=== PATIENT | female | born 1935 | race Caucasian/White ===

== ENCOUNTER 2017-04-04 12:24 | Inpatient (IN) ==
[2017-04-04] MEDS ORDERED: ASPIRIN 325 MG TABLET PO STA (12:47)
[2017-04-04] MEDS ORDERED: NITROGLYCERIN 2% OINT 1 INCH/GM PACK TOP STA (12:47)
[2017-04-04] MEDS ORDERED: METOCLOPRAMIDE 10 MG/2 ML VIAL IV STA (12:47)
[2017-04-04] MEDS ORDERED: PANTOPRAZOLE 40 MG VIAL IV STA (12:47)
[2017-04-04] MEDS ORDERED: ALUM/MAG/SIMETH/LIDO VISC 1:1 30 ML BOTTLE PO STA (12:47)
[2017-04-04 13:15] LABS: Basophils % 0.1 % (0.0-0.8); Hematocrit 37.1 VOL% (35.7-47.0); Hemoglobin 12.6 GM/DL (12.0-16.0); Immature Granulocytes Absolute 0.14 #; Lymphocytes # 1.1 10*3/uL (1.4-4.0); Lymphocytes % 8.3 % (21.3-54.2); Mean Corpuscular Hemoglobin 33 PG (27-34); Mean Corpuscular Volume 96.1 FL (87-102); Mean Platelet Volume 10.9 FL (9.6-12.0); Monocytes # 1.2 10*3/uL (0.11-0.8); Monocytes % 8.7 % (1.7-12.7); Neutrophils % 81.9 % (38.7-73.9); Platelet Count 249 T/CUMM (130-400); Red Blood Count 3.86 MC/CUMM (3.8-5.5); Red Cell Distribution Width 13.6 % (9.3-17.3); White Blood Count 13.5 T/CUMM (4-12)
[2017-04-04 13:27] LABS: INR 0.9; Partial Thromboplastin Time 24.8 SECS (0-40)
[2017-04-04] MEDS ORDERED: NITROGLYCERIN 2% OINT 1 INCH/GM PACK TOP ONE (13:28)
[2017-04-04] MEDS ORDERED: ASPIRIN 325 MG TABLET ONE (13:28)
[2017-04-04] MEDS ORDERED: METOCLOPRAMIDE 10 MG/2 ML VIAL ONE (13:28)
[2017-04-04] MEDS ORDERED: ALUM/MAG/SIMETH/LIDO VISC 1:1 30 ML BOTTLE PO ONE (13:28)
[2017-04-04] MEDS ORDERED: PANTOPRAZOLE 40 MG VIAL IV ONE (13:28)
[2017-04-04 13:44] LABS: Alanine Aminotransferase 60 U/L (13-56); Albumin 3.6 G/DL (3.4-5.0); Alkaline Phosphatase 79 U/L (45-117); Amylase 22 U/L (25-115); Aspartate Amino Transferase 48 U/L (0-37); Blood Urea Nitrogen 39 MG/DL (7-18); Calcium 9.2 MG/DL (8.5-10.1); Glucose 101 MG/DL (74-106); Osmolality,Calculated 287.4 MOS/KG (273-304); Potassium 4.1 MMOL/L (3.5-5.1); Sodium 140 MMOL/L (136-145); Total Protein 6.2 G/DL (6.4-8.3)
[2017-04-04 13:45] LABS: Troponin I Only 0.051 NG/ML (0.00-0.045)
[2017-04-04] MEDS ORDERED: MAGNESIUM SULF RIDER 4 GM in PREMIX 1 EACH IV PRN (16:18)
[2017-04-04] MEDS ORDERED: ACETAMINOPHEN 325 MG TABLET PO PRN (16:18)
[2017-04-04] MEDS ORDERED: MAGNESIUM SULF RIDER 2 GM in PREMIX 1 EACH IV PRN (16:18)
[2017-04-04] MEDS ORDERED: ONDANSETRON 4 MG/2 ML VIAL IV PRN (16:18)
[2017-04-04] MEDS ORDERED: hydroCHLOROthiazide 25 MG TABLET PO SCH (16:30)
[2017-04-04] MEDS ORDERED: ALBUTEROL/IPRATROPIUM 3 ML NEB RESP TX PRN (16:40)
[2017-04-04] MEDS: LISINOPRIL/HCTZ 10-12.5 MG TABLET PO SCH (17:46)
[2017-04-04] MEDS: PANTOPRAZOLE 40 MG TABLET PO SCH (17:47)
[2017-04-04] MEDS: ENOXAPARIN 40 MG/0.4 ML SYRINGE SUBCUT SCH (17:47)
[2017-04-04] MEDS: FERROUS SULFATE 325 MG TABLET PO SCH (17:47)
[2017-04-04 17:50] LABS: Troponin I Only 0.092 NG/ML (0.00-0.045)
[2017-04-04 17:53] LABS: Magnesium 2.5 MG/DL (1.8-2.4); Thyroid Stimulating Hormone 0.788 uIU/ml (0.358-3.74)
[2017-04-04] MEDS: GABAPENTIN 300 MG CAPSULE PO SCH (21:03)
[2017-04-04 21:04] LABS: Troponin I Only 0.074 NG/ML (0.00-0.045)
[2017-04-05 00:01] LABS: Troponin I Only 0.077 NG/ML (0.00-0.045)
[2017-04-05 01:07] LABS: Apearance,Urine CLEAR (Clear); Bilirubin,Urine Negative (Negative); Blood, Urine Negative (Negative); Glucose,Urine (UA) Negative (Negative); Ketones,Urine Negative (Negative); Nitrite,Urine Negative (Negative); Protein,Urine Negative; RBC,Urine <1 /HPF (0-4); Urine Color Straw (Yellow); Urine Specific Gravity 1.008 (1.001-1.035); Urine Urobilinogen < 2.0 EU/DL (0.2-1.0); WBC,Urine <1 /HPF (0-6)
[2017-04-05 05:36] LABS: Basophils # 0.1 10*3/uL (0.0-0.2); Basophils % 0.3 % (0.0-0.8); Eosinophils # 0.1 10*3/uL (0.0-0.87); Eosinophils % 0.7 % (0.00-10.9); Hematocrit 34.8 VOL% (35.7-47.0); Hemoglobin 11.5 GM/DL (12.0-16.0); Immature Granulocytes % 0.7 %; Lymphocytes # 3.1 10*3/uL (1.4-4.0); Lymphocytes % 20.3 % (21.3-54.2); Mean Corpuscular Hemoglobin 32 PG (27-34); Mean Corpuscular Volume 96.7 FL (87-102); Monocytes # 1.1 10*3/uL (0.11-0.8); Monocytes % 7.1 % (1.7-12.7); Neutrophils # 10.6 10*3/uL (1.4-7.4); Neutrophils % 70.9 % (38.7-73.9); Platelet Count 235 T/CUMM (130-400); Red Cell Distribution Width 13.8 % (9.3-17.3)
[2017-04-05] MEDS: LEVOTHYROXINE 200 MCG TABLET PO SCH (06:11)
[2017-04-05 06:21] LABS: Calcium 8.6 MG/DL (8.5-10.1); Potassium 3.9 MMOL/L (3.5-5.1); Risk Ratio 2.91; VLDL CHOLESTEROL 31.8 MG/DL
[2017-04-05] MEDS ORDERED: POTASSIUM CHLORIDE RIDER 10 MEQ in PREMIX 1 EACH IV PRN (11:20)
[2017-04-05] MEDS ORDERED: diphenhydrAMINE CAP 25 MG CAPSULE PO ONE (11:20)
[2017-04-05] MEDS ORDERED: MAGNESIUM SULF RIDER 2 GM in PREMIX 1 EACH IV PRN (11:20)
[2017-04-05] MEDS ORDERED: SODIUM CHLORIDE 0.9% 1,000 ML IV SCH (11:30)
[2017-04-05] MEDS: FUROSEMIDE 20 MG TABLET PO SCH ×2 (12:54→13:21)
[2017-04-05] MEDS: GABAPENTIN 300 MG CAPSULE PO SCH ×3 (13:17→20:25)
[2017-04-05] MEDS: FERROUS SULFATE 325 MG TABLET PO SCH (13:17)
[2017-04-05] MEDS: LOSARTAN 50 MG TABLET PO SCH (13:17)
[2017-04-05] MEDS: ASPIRIN EC 81 MG TABLET PO SCH (13:17)
[2017-04-05] MEDS: PANTOPRAZOLE 40 MG TABLET PO SCH (13:17)
[2017-04-05] MEDS: amLODIPine 5 MG TABLET PO SCH (13:18)
[2017-04-05] MEDS: SIMVASTATIN 40 MG TABLET PO SCH (13:18)
[2017-04-05] MEDS: hydroCHLOROthiazide 12.5 MG CAPSULE PO SCH (13:21)
[2017-04-05] MEDS: LISINOPRIL/HCTZ 10-12.5 MG TABLET PO SCH (13:21)
[2017-04-05] MEDS ORDERED: LIDOCAINE 1% 20 ML VIAL ONE (14:06)
[2017-04-05] MEDS ORDERED: MEPERIDINE 25 MG/1 ML VIAL ONE (14:18)
[2017-04-05] MEDS ORDERED: MIDAZOLAM 2 MG/2 ML VIAL ONE (14:19)
[2017-04-05] MEDS ORDERED: HEPARIN 5,000 UNIT/1 ML VIAL ONE (14:25)
[2017-04-05] MEDS: ENOXAPARIN 40 MG/0.4 ML SYRINGE SUBCUT SCH (17:13)
[2017-04-05] MEDS: MORPHINE 2 MG/1 ML SYRINGE IV PRN (23:42)
[2017-04-05] MEDS: ZALEPLON 5 MG CAPSULE PO PRN (23:44)
[2017-04-06] MEDS: MORPHINE 2 MG/1 ML SYRINGE IV PRN ×2 (03:49→06:49)
[2017-04-06 05:21] LABS: Basophils # 0.1 10*3/uL (0.0-0.2); Basophils % 0.5 % (0.0-0.8); Eosinophils # 0.3 10*3/uL (0.0-0.87); Eosinophils % 2.1 % (0.00-10.9); Hematocrit 36.7 VOL% (35.7-47.0); Hemoglobin 12.3 GM/DL (12.0-16.0); Immature Granulocytes % 0.5 %; Immature Granulocytes Absolute 0.07 #; Lymphocytes # 2.8 10*3/uL (1.4-4.0); Lymphocytes % 20.8 % (21.3-54.2); Mean Corpuscular HGB Conc 33.5 GM/DL (32-36); Mean Corpuscular Hemoglobin 33 PG (27-34); Mean Corpuscular Volume 97.9 FL (87-102); Monocytes # 1.3 10*3/uL (0.11-0.8); Monocytes % 9.9 % (1.7-12.7); Neutrophils # 8.8 10*3/uL (1.4-7.4); Neutrophils % 66.2 % (38.7-73.9); Platelet Count 238 T/CUMM (130-400); Red Blood Count 3.75 MC/CUMM (3.8-5.5); Red Cell Distribution Width 14.1 % (9.3-17.3); White Blood Count 13.3 T/CUMM (4-12)
[2017-04-06 05:47] LABS: Calcium 8.3 MG/DL (8.5-10.1); Potassium 3.8 MMOL/L (3.5-5.1)
[2017-04-06 05:53] LABS: Calcium 8.5 MG/DL (8.5-10.1); Magnesium 2.4 MG/DL (1.8-2.4); Osmolality,Calculated 289.8 MOS/KG (273-304); Potassium 3.9 MMOL/L (3.5-5.1)
[2017-04-06] MEDS: LEVOTHYROXINE 200 MCG TABLET PO SCH (06:42)
[2017-04-06] MEDS: LOSARTAN 50 MG TABLET PO SCH (09:00)
[2017-04-06] MEDS: PANTOPRAZOLE 40 MG TABLET PO SCH (09:01)
[2017-04-06] MEDS: FUROSEMIDE 20 MG TABLET PO SCH ×2 (09:01→11:59)
[2017-04-06] MEDS: GABAPENTIN 300 MG CAPSULE PO SCH ×4 (09:01→21:24)
[2017-04-06] MEDS: SIMVASTATIN 40 MG TABLET PO SCH (09:01)
[2017-04-06] MEDS: LISINOPRIL/HCTZ 10-12.5 MG TABLET PO SCH (09:01)
[2017-04-06] MEDS: amLODIPine 5 MG TABLET PO SCH (09:01)
[2017-04-06] MEDS: hydroCHLOROthiazide 12.5 MG CAPSULE PO SCH (09:01)
[2017-04-06] MEDS: ASPIRIN EC 81 MG TABLET PO SCH (09:01)
[2017-04-06] MEDS: FERROUS SULFATE 325 MG TABLET PO SCH (11:59)
[2017-04-06] MEDS: ENOXAPARIN 40 MG/0.4 ML SYRINGE SUBCUT SCH (16:08)
[2017-04-06] MEDS: ZALEPLON 5 MG CAPSULE PO PRN (21:22)
[2017-04-07 04:51] LABS: Basophils # 0.1 10*3/uL (0.0-0.2); Basophils % 0.6 % (0.0-0.8); Eosinophils # 0.4 10*3/uL (0.0-0.87); Eosinophils % 3.2 % (0.00-10.9); Hematocrit 37.9 VOL% (35.7-47.0); Hemoglobin 12.6 GM/DL (12.0-16.0); Immature Granulocytes % 0.6 %; Immature Granulocytes Absolute 0.07 #; Lymphocytes # 3.6 10*3/uL (1.4-4.0); Lymphocytes % 29.7 % (21.3-54.2); Mean Corpuscular HGB Conc 33.2 GM/DL (32-36); Mean Corpuscular Hemoglobin 32 PG (27-34); Mean Corpuscular Volume 96.9 FL (87-102); Mean Platelet Volume 10.9 FL (9.6-12.0); Monocytes # 1.1 10*3/uL (0.11-0.8); Neutrophils % 56.9 % (38.7-73.9); Platelet Count 251 T/CUMM (130-400); Red Blood Count 3.91 MC/CUMM (3.8-5.5); Red Cell Distribution Width 13.8 % (9.3-17.3); White Blood Count 12.2 T/CUMM (4-12)
[2017-04-07 05:18] LABS: Calcium 8.7 MG/DL (8.5-10.1); Magnesium 2.4 MG/DL (1.8-2.4); Osmolality,Calculated 287.1 MOS/KG (273-304); Potassium 3.9 MMOL/L (3.5-5.1)
[2017-04-07] MEDS: LEVOTHYROXINE 200 MCG TABLET PO SCH (06:54)
[2017-04-07] MEDS: ASPIRIN EC 81 MG TABLET PO SCH (08:42)
[2017-04-07] MEDS: SIMVASTATIN 40 MG TABLET PO SCH (08:42)
[2017-04-07] MEDS: LOSARTAN 50 MG TABLET PO SCH (08:43)
[2017-04-07] MEDS: hydroCHLOROthiazide 12.5 MG CAPSULE PO SCH (08:43)
[2017-04-07] MEDS: LISINOPRIL/HCTZ 10-12.5 MG TABLET PO SCH (08:43)
[2017-04-07] MEDS: FUROSEMIDE 20 MG TABLET PO SCH ×2 (08:43→12:03)
[2017-04-07] MEDS: amLODIPine 5 MG TABLET PO SCH (08:43)
[2017-04-07] MEDS: GABAPENTIN 300 MG CAPSULE PO SCH ×3 (08:43→22:20)
[2017-04-07] MEDS: PANTOPRAZOLE 40 MG TABLET PO SCH (08:43)
[2017-04-07] MEDS: tiZANidine 4 MG TABLET PO PRN ×2 (10:34→22:20)
[2017-04-07] MEDS: FERROUS SULFATE 325 MG TABLET PO SCH (12:04)
[2017-04-07] MEDS: ENOXAPARIN 40 MG/0.4 ML SYRINGE SUBCUT SCH (17:46)
[2017-04-07] MEDS: ZALEPLON 5 MG CAPSULE PO PRN (22:20)
[2017-04-08 05:11] LABS: Calcium 8.5 MG/DL (8.5-10.1); Magnesium 2.3 MG/DL (1.8-2.4); Osmolality,Calculated 284.5 MOS/KG (273-304); Potassium 4.1 MMOL/L (3.5-5.1)
[2017-04-08] MEDS: LEVOTHYROXINE 200 MCG TABLET PO SCH (06:22)
[2017-04-08] MEDS: tiZANidine 4 MG TABLET PO PRN (06:24)
[2017-04-08] MEDS: GABAPENTIN 300 MG CAPSULE PO SCH ×3 (10:14→21:04)
[2017-04-08] MEDS: LISINOPRIL/HCTZ 10-12.5 MG TABLET PO SCH (10:14)
[2017-04-08] MEDS: amLODIPine 5 MG TABLET PO SCH (10:14)
[2017-04-08] MEDS: LOSARTAN 50 MG TABLET PO SCH (10:15)
[2017-04-08] MEDS: SIMVASTATIN 40 MG TABLET PO SCH (10:15)
[2017-04-08] MEDS: ASPIRIN EC 81 MG TABLET PO SCH (10:15)
[2017-04-08] MEDS: FUROSEMIDE 20 MG TABLET PO SCH ×2 (10:15→14:48)
[2017-04-08] MEDS: PANTOPRAZOLE 40 MG TABLET PO SCH (10:16)
[2017-04-08] MEDS: hydroCHLOROthiazide 12.5 MG CAPSULE PO SCH (10:16)
[2017-04-08] MEDS: FERROUS SULFATE 325 MG TABLET PO SCH (14:46)
[2017-04-08] MEDS: ENOXAPARIN 40 MG/0.4 ML SYRINGE SUBCUT SCH (17:44)
[2017-04-09 05:18] LABS: Basophils # 0.1 10*3/uL (0.0-0.2); Basophils % 0.5 % (0.0-0.8); Eosinophils # 0.5 10*3/uL (0.0-0.87); Eosinophils % 3.8 % (0.00-10.9); Hematocrit 38.8 VOL% (35.7-47.0); Hemoglobin 12.6 GM/DL (12.0-16.0); Immature Granulocytes % 0.6 %; Immature Granulocytes Absolute 0.07 #; Lymphocytes # 2.9 10*3/uL (1.4-4.0); Lymphocytes % 23.4 % (21.3-54.2); Mean Corpuscular HGB Conc 32.5 GM/DL (32-36); Mean Corpuscular Hemoglobin 32 PG (27-34); Mean Corpuscular Volume 97.5 FL (87-102); Mean Platelet Volume 11.1 FL (9.6-12.0); Monocytes # 1.1 10*3/uL (0.11-0.8); Monocytes % 8.9 % (1.7-12.7); Neutrophils # 7.9 10*3/uL (1.4-7.4); Neutrophils % 62.8 % (38.7-73.9); Platelet Count 280 T/CUMM (130-400); Red Blood Count 3.98 MC/CUMM (3.8-5.5); Red Cell Distribution Width 13.4 % (9.3-17.3); White Blood Count 12.6 T/CUMM (4-12)
[2017-04-09 05:45] LABS: Calcium 9.2 MG/DL (8.5-10.1); Magnesium 2.3 MG/DL (1.8-2.4); Osmolality,Calculated 286.4 MOS/KG (273-304); Potassium 4.3 MMOL/L (3.5-5.1)
[2017-04-09] MEDS ORDERED: GLUCAGON 1 MG VIAL IM PRN (05:47)
[2017-04-09] MEDS ORDERED: DEXTROSE 50% 25 GM/50 ML VIAL IV PRN (05:47)
[2017-04-09] MEDS: LEVOTHYROXINE 200 MCG TABLET PO SCH (06:07)
[2017-04-09 06:29] LABS: ABG Base Excess 1.2 MMOL/L (-2.5-2.5); ABG HCO3 25.5 MMOL/L (20-26); ABG Oxygen Saturation 95.5 % (95-100); ABG PCO2 41.4 MM HG (35-48); ABG PH 7.406 (7.35-7.45); ABG PO2 73.5 MM HG (80-95)
[2017-04-09] MEDS: LOSARTAN 50 MG TABLET PO SCH (09:54)
[2017-04-09] MEDS: ASPIRIN EC 81 MG TABLET PO SCH (09:54)
[2017-04-09] MEDS: hydroCHLOROthiazide 12.5 MG CAPSULE PO SCH (09:55)
[2017-04-09] MEDS: amLODIPine 5 MG TABLET PO SCH (09:55)
[2017-04-09] MEDS: GABAPENTIN 300 MG CAPSULE PO SCH ×3 (09:55→22:03)
[2017-04-09] MEDS: FUROSEMIDE 20 MG TABLET PO SCH ×2 (09:56→11:53)
[2017-04-09] MEDS: PANTOPRAZOLE 40 MG TABLET PO SCH (09:56)
[2017-04-09] MEDS: SIMVASTATIN 40 MG TABLET PO SCH (09:57)
[2017-04-09] MEDS: CHLORHEXIDINE 0.12% ORAL RINSE 60 ML BOTTLE SWISH/SPIT SCH ×2 (11:52→22:05)
[2017-04-09] MEDS: FERROUS SULFATE 325 MG TABLET PO SCH (11:53)
[2017-04-09] MEDS: ENOXAPARIN 40 MG/0.4 ML SYRINGE SUBCUT SCH (18:20)
[2017-04-09] MEDS: METOPROLOL TARTRATE 25 MG TABLET PO SCH (22:03)
[2017-04-09] MEDS: ROSUVASTATIN 20 MG TABLET PO SCH (22:03)
[2017-04-10 05:08] LABS: Basophils # 0.1 10*3/uL (0.0-0.2); Basophils % 0.5 % (0.0-0.8); Eosinophils # 0.6 10*3/uL (0.0-0.87); Eosinophils % 4.8 % (0.00-10.9); Hemoglobin 13.5 GM/DL (12.0-16.0); Immature Granulocytes % 0.7 %; Immature Granulocytes Absolute 0.08 #; Lymphocytes # 3.5 10*3/uL (1.4-4.0); Mean Corpuscular HGB Conc 32.9 GM/DL (32-36); Mean Corpuscular Hemoglobin 32 PG (27-34); Mean Corpuscular Volume 98.1 FL (87-102); Mean Platelet Volume 10.8 FL (9.6-12.0); Monocytes # 1.1 10*3/uL (0.11-0.8); Neutrophils # 6.5 10*3/uL (1.4-7.4); Platelet Count 297 T/CUMM (130-400); Red Blood Count 4.18 MC/CUMM (3.8-5.5); Red Cell Distribution Width 13.3 % (9.3-17.3); White Blood Count 11.8 T/CUMM (4-12)
[2017-04-10 05:35] LABS: Calcium 8.8 MG/DL (8.5-10.1); Magnesium 2.6 MG/DL (1.8-2.4); Osmolality,Calculated 286.5 MOS/KG (273-304); Potassium 4.5 MMOL/L (3.5-5.1)
[2017-04-10] MEDS: LEVOTHYROXINE 200 MCG TABLET PO SCH (06:02)
[2017-04-10] MEDS: CHLORHEXIDINE 0.12% ORAL RINSE 60 ML BOTTLE SWISH/SPIT SCH ×2 (09:04→22:39)
[2017-04-10] MEDS: GABAPENTIN 300 MG CAPSULE PO SCH ×3 (09:05→22:24)
[2017-04-10] MEDS: amLODIPine 5 MG TABLET PO SCH (09:05)
[2017-04-10] MEDS: ASPIRIN EC 81 MG TABLET PO SCH (09:05)
[2017-04-10] MEDS: PANTOPRAZOLE 40 MG TABLET PO SCH (09:05)
[2017-04-10] MEDS: hydroCHLOROthiazide 12.5 MG CAPSULE PO SCH (09:05)
[2017-04-10] MEDS: tiZANidine 4 MG TABLET PO PRN ×3 (09:05→22:22)
[2017-04-10] MEDS: FUROSEMIDE 20 MG TABLET PO SCH ×2 (09:05→11:50)
[2017-04-10] MEDS: CHLORHEXIDINE 4% SOLN 118 ML BOTTLE TOP SCH ×3 (09:06→22:39)
[2017-04-10] MEDS: LOSARTAN 50 MG TABLET PO SCH (09:06)
[2017-04-10] MEDS: SODIUM CHLORIDE 0.9% 1,000 ML IV SCH (09:06)
[2017-04-10] MEDS: METOPROLOL TARTRATE 25 MG TABLET PO SCH ×2 (09:06→22:23)
[2017-04-10] MEDS: FERROUS SULFATE 325 MG TABLET PO SCH (11:49)
[2017-04-10] MEDS ORDERED: MAGNESIUM HYDROXIDE SUSP 30 ML UDCUP PO PRN (17:34)
[2017-04-10] MEDS: ENOXAPARIN 40 MG/0.4 ML SYRINGE SUBCUT SCH (18:14)
[2017-04-10] MEDS: ZALEPLON 5 MG CAPSULE PO PRN (22:20)
[2017-04-10] MEDS: ROSUVASTATIN 20 MG TABLET PO SCH (22:23)
[2017-04-11] MEDS ORDERED: PAPAVERINE 60 MG/2 ML VIAL ONE (04:32)
[2017-04-11] MEDS ORDERED: VANCOMYCIN 1,000 MG VIAL ONE (04:33)
[2017-04-11] MEDS ORDERED: LORazepam 1 MG TABLET PO ONE (05:51)
[2017-04-11] MEDS ORDERED: FAMOTIDINE 20 MG TABLET PO ONE (05:52)
[2017-04-11] MEDS ORDERED: TRANEXAMIC ACID 1,000 MG/10 ML VIAL IV ONE (05:59)
[2017-04-11] MEDS ORDERED: CEFUROXIME INJ 1,500 MG in SODIUM CHLORIDE 0.9% 50 ML IV ONE (06:00)
[2017-04-11 06:13] LABS: Basophils # 0.1 10*3/uL (0.0-0.2); Basophils % 0.5 % (0.0-0.8); Eosinophils # 0.5 10*3/uL (0.0-0.87); Eosinophils % 4.1 % (0.00-10.9); Hematocrit 37.9 VOL% (35.7-47.0); Hemoglobin 12.3 GM/DL (12.0-16.0); Immature Granulocytes % 0.4 %; Immature Granulocytes Absolute 0.05 #; Lymphocytes % 26.5 % (21.3-54.2); Mean Corpuscular HGB Conc 32.5 GM/DL (32-36); Mean Corpuscular Hemoglobin 32 PG (27-34); Mean Corpuscular Volume 97.9 FL (87-102); Mean Platelet Volume 11.1 FL (9.6-12.0); Monocytes % 8.7 % (1.7-12.7); Neutrophils # 6.8 10*3/uL (1.4-7.4); Neutrophils % 59.8 % (38.7-73.9); Platelet Count 295 T/CUMM (130-400); Red Blood Count 3.87 MC/CUMM (3.8-5.5); Red Cell Distribution Width 13.2 % (9.3-17.3); White Blood Count 11.3 T/CUMM (4-12)
[2017-04-11] MEDS: METOPROLOL TARTRATE 25 MG TABLET PO SCH ×2 (06:25→10:35)
[2017-04-11] MEDS ORDERED: SODIUM CHLORIDE 0.9% 100 ML IV ONE (06:29)
[2017-04-11] MEDS ORDERED: LACTATED RINGERS 1,000 ML IV ONE (06:29)
[2017-04-11] MEDS ORDERED: SODIUM CHLORIDE 0.9% 1,000 ML IV ONE (06:29)
[2017-04-11] MEDS ORDERED: PHENYLEPHRINE DRIP 20 MG/250 ML PREMIX IV ONE ×2 (06:29→11:35)
[2017-04-11] MEDS ORDERED: SODIUM CHLORIDE 0.9% 250 ML IV ONE ×2 (06:29→13:08)
[2017-04-11] MEDS ORDERED: HEPARIN/NACL 0.9% 2 UNITS/ML 500 ML IV ONE (06:29)
[2017-04-11] MEDS ORDERED: NITROGLYCERIN DRIP 50 MG/250 ML BOTTLE IV ONE ×2 (06:29→16:20)
[2017-04-11 06:39] LABS: Calcium 8.8 MG/DL (8.5-10.1); Magnesium 2.8 MG/DL (1.8-2.4); Osmolality,Calculated 281.1 MOS/KG (273-304); Potassium 4.8 MMOL/L (3.5-5.1)
[2017-04-11 07:37] LABS: ABG Base Excess 0.3 MMOL/L (-2.5-2.5); ABG HCO3 26.9 MMOL/L (20-26); ABG PCO2 51.9 MM HG (35-48); ABG PH 7.332 (7.35-7.45); ABG PO2 249.5 MM HG (80-95); ABG TCO2 28.5 MMOL/L (23-27); Glucose Heart Surgery 130 MG/DL (74-106); Hemoglobin Heart Surgery 12.4 G/DL (12.0-16.0); Ionized Calcium Arterial 1.19 MMOL/L (1.21-1.46); PCO2 Patient Temp Arterial 51.9 MMHG; PH Patient Temp Arterial 7.332; PO2 Patient Temp Arterial 249.5 MM HG; Patient Temperature 37 CELCIUS; Potassium Heart/CVR 4.6 MMOL/L (3.5-5.1); Sodium Heart/CVR 135 MMOL/L (135-145)
[2017-04-11 08:35] LABS: Apearance,Urine CLEAR (Clear); Bilirubin,Urine Negative (Negative); Blood, Urine Negative (Negative); Glucose,Urine (UA) Negative (Negative); Ketones,Urine Negative (Negative); Mucus,Urine Occasional /LPF (Occasional); Nitrite,Urine Negative (Negative); Protein,Urine Negative; RBC,Urine <1 /HPF (0-4); Urine Color Yellow (Yellow); Urine Specific Gravity 1.008 (1.001-1.035); Urine Urobilinogen < 2.0 EU/DL (0.2-1.0); WBC,Urine <1 /HPF (0-6)
[2017-04-11 09:43] LABS: Hemoglobin Heart Surgery 8.3 G/DL (12.0-16.0); PCO2 Patient Temp Venous 39.5 MM HG; PH Patient Temp Venous 7.448; PO2 Patient Temp Venous 31.8 MM HG; Potassium Heart/CVR 4.6 MMOL/L (3.5-5.1); VBG Base Excess 2.4 MEQ/L (0-4); VBG HCO3 27.2 MEQ/L (24-28); VBG Oxygen Saturation 80.1 %; VBG PCO2 43.1 MMHG (41-51); VBG PH 7.418; VBG PO2 36.6 MMHG (17-40)
[2017-04-11] MEDS ORDERED: POTASSIUM CHLORIDE RIDER 100 ML IV ONE (09:44)
[2017-04-11] MEDS ORDERED: NITROPRUSSIDE 50 MG/2 ML VIAL ONE (09:44)
[2017-04-11] MEDS ORDERED: PHENYLEPHRINE DRIP 40 MG/250 ML PREMIX IV ONE (09:44)
[2017-04-11] MEDS ORDERED: CALCIUM CHLORIDE 1,000 MG/10 ML SYRINGE IV ONE (09:44)
[2017-04-11] MEDS ORDERED: CALCIUM CHLORIDE 1,000 MG/10 ML VIAL IV ONE (10:09)
[2017-04-11] MEDS ORDERED: ETOMIDATE 20 MG/10 ML VIAL IV ONE (10:09)
[2017-04-11] MEDS ORDERED: VECURONIUM 10 MG VIAL IV ONE (10:09)
[2017-04-11 10:17] LABS: Hemoglobin Heart Surgery 8.7 G/DL (12.0-16.0); PH Patient Temp Venous 7.465; PO2 Patient Temp Venous 31.3 MM HG; VBG Base Excess 2.1 MEQ/L (0-4); VBG HCO3 26.5 MEQ/L (24-28); VBG PCO2 40.4 MMHG (41-51); VBG PH 7.435; VBG PO2 36.1 MMHG (17-40)
[2017-04-11] MEDS: hydroCHLOROthiazide 12.5 MG CAPSULE PO SCH (10:34)
[2017-04-11] MEDS: FUROSEMIDE 20 MG TABLET PO SCH ×2 (10:34→18:22)
[2017-04-11] MEDS: LEVOTHYROXINE 200 MCG TABLET PO SCH (10:34)
[2017-04-11] MEDS: LOSARTAN 50 MG TABLET PO SCH (10:34)
[2017-04-11] MEDS: ASPIRIN EC 81 MG TABLET PO SCH (10:34)
[2017-04-11] MEDS: CHLORHEXIDINE 0.12% ORAL RINSE 60 ML BOTTLE SWISH/SPIT SCH ×2 (10:35→21:46)
[2017-04-11] MEDS: PANTOPRAZOLE 40 MG TABLET PO SCH (10:35)
[2017-04-11] MEDS: GABAPENTIN 300 MG CAPSULE PO SCH (10:35)
[2017-04-11] MEDS: amLODIPine 5 MG TABLET PO SCH (10:35)
[2017-04-11 10:47] LABS: Hemoglobin Heart Surgery 8.9 G/DL (12.0-16.0); PH Patient Temp Venous 7.503; PO2 Patient Temp Venous 29.3 MM HG; Potassium Heart/CVR 3.9 MMOL/L (3.5-5.1); VBG Base Excess 2.1 MEQ/L (0-4); VBG Oxygen Saturation 81.3 %; VBG PCO2 37.6 MMHG (41-51); VBG PH 7.458; VBG PO2 36.2 MMHG (17-40)
[2017-04-11] MEDS ORDERED: HEPARIN 10,000 UNIT/10 ML VIAL ONE (11:36)
[2017-04-11] MEDS ORDERED: MAGNESIUM SULFATE 1 GM/2 ML VIAL ONE (11:36)
[2017-04-11] MEDS ORDERED: ALBUMIN 25% 25 GM/100 ML VIAL IV ONE (11:36)
[2017-04-11] MEDS ORDERED: MANNITOL 12.5 GM/50 ML VIAL IV ONE (11:36)
[2017-04-11] MEDS ORDERED: FUROSEMIDE 20 MG/2 ML VIAL ONE (11:36)
[2017-04-11] MEDS ORDERED: DEXTROSE 5% KCL 20 MEQ 20 MEQ/1,000 ML BAG IV ONE (11:36)
[2017-04-11] MEDS ORDERED: PROTAMINE SULFATE 250 MG/25 ML VIAL IV ONE (11:36)
[2017-04-11] MEDS ORDERED: SODIUM BICARBONATE 50 MEQ/50 ML SYRINGE IV ONE (11:36)
[2017-04-11] MEDS ORDERED: methylPREDNISolone SOD SUC 1,000 MG/8 ML VIAL ONE (11:36)
[2017-04-11] MEDS ORDERED: POTASSIUM CHLORIDE 20 MEQ/10 ML VIAL ONE (11:37)
[2017-04-11] MEDS ORDERED: PROTAMINE SULFATE 50 MG/5 ML VIAL IV ONE ×3 (11:37→14:24)
[2017-04-11 11:48] LABS: ABG Base Excess -0.8 MMOL/L (-2.5-2.5); ABG HCO3 23.8 MMOL/L (20-26); ABG Oxygen Saturation 99.6 % (95-100); ABG PCO2 40.2 MM HG (35-48); ABG PH 7.386 (7.35-7.45); ABG TCO2 22.3 MMOL/L (23-27); Glucose Heart Surgery 213 MG/DL (74-106); Hematocrit Heart Surgery 27.3 PERCENT (37-47); Hemoglobin Heart Surgery 8.8 G/DL (12.0-16.0); Ionized Calcium Arterial 1.39 MMOL/L (1.21-1.46); PCO2 Patient Temp Arterial 40.2 MMHG; PH Patient Temp Arterial 7.386; Patient Temperature 37 CELCIUS; Sodium Heart/CVR 133 MMOL/L (135-145)
[2017-04-11] MEDS ORDERED: THROMBIN TOPICAL (RECOMBINANT) 5,000 UNIT VIAL TOP ONE (11:58)
[2017-04-11] MEDS ORDERED: ALBUMIN 5% 12.5 GM/250 ML VIAL IV ONE ×2 (12:50→13:01)
[2017-04-11] MEDS ORDERED: SEVOFLURANE 1 UNIT/15 MINUTE INH ONE (13:06)
[2017-04-11] MEDS ORDERED: SUFentanil 250 MCG/5 ML AMP ONE (13:06)
[2017-04-11] MEDS ORDERED: MIDAZOLAM 10 MG/2 ML VIAL ONE (13:07)
[2017-04-11] MEDS ORDERED: EPINEPHrine 1 MG/ML VIAL ONE (13:07)
[2017-04-11] MEDS ORDERED: ePHEDrine 50 MG/ML AMP ONE (13:07)
[2017-04-11] MEDS ORDERED: SUFentanil 50 MCG/ML AMP ONE (13:07)
[2017-04-11] MEDS: ALBUMIN 5% 12.5 GM in PREMIX 1 EACH IV PRN ×3 (13:10→21:25)
[2017-04-11] MEDS ORDERED: PHENYLEPHRINE DRIP 40 MG/250 ML PREMIX IV PRN (13:21)
[2017-04-11] MEDS ORDERED: CALCIUM CHLORIDE 1,000 MG/10 ML SYRINGE IV PRN (13:21)
[2017-04-11] MEDS ORDERED: VECURONIUM 10 MG VIAL IV PRN ×2 (13:21)
[2017-04-11] MEDS ORDERED: INSULIN REGULAR 100 UNIT/ML IV PRN (13:21)
[2017-04-11] MEDS ORDERED: INSULIN REGULAR 100 UNIT/ML IV ONE (13:21)
[2017-04-11] MEDS ORDERED: ONDANSETRON 4 MG/2 ML VIAL IV PRN (13:21)
[2017-04-11] MEDS ORDERED: MAGNESIUM SULF RIDER 4 GM in PREMIX 1 EACH IV PRN (13:21)
[2017-04-11] MEDS ORDERED: NITROPRUSSIDE 100 MG in DEXTROSE 5% 250 ML IV PRN (13:21)
[2017-04-11] MEDS ORDERED: MAGNESIUM SULF RIDER 2 GM in PREMIX 1 EACH IV PRN (13:21)
[2017-04-11] MEDS ORDERED: MIDAZOLAM 10 MG/2 ML VIAL IV PRN (13:21)
[2017-04-11] MEDS ORDERED: MIDAZOLAM 2 MG/2 ML VIAL IV PRN (13:21)
[2017-04-11] MEDS ORDERED: ACETAMINOPHEN 650 MG SUPP RECTAL PRN (13:21)
[2017-04-11] MEDS ORDERED: POTASSIUM CHLORIDE RIDER 10 MEQ in PREMIX 1 EACH IV PRN (13:21)
[2017-04-11] MEDS ORDERED: DEXTROSE 50% 25 GM/50 ML VIAL IV PRN ×2 (13:21)
[2017-04-11] MEDS ORDERED: SODIUM CHLORIDE 0.45% 1,000 ML IV SCH ×2 (13:21)
[2017-04-11] MEDS ORDERED: LACTATED RINGERS 250 ML IV PRN (13:21)
[2017-04-11] MEDS ORDERED: INSULIN REGULAR DRIP 100 ML IV SCH (13:21)
[2017-04-11 13:24] LABS: ABG Base Excess -3.1 MMOL/L (-2.5-2.5); ABG HCO3 21.8 MMOL/L (20-26); ABG Oxygen Saturation 96.5 % (95-100); ABG PCO2 43.3 MM HG (35-48); ABG PH 7.328 (7.35-7.45); ABG TCO2 21.2 MMOL/L (23-27); Glucose Heart Surgery 182 MG/DL (74-106); Hematocrit Heart Surgery 27.2 PERCENT (37-47); Hemoglobin Heart Surgery 8.8 G/DL (12.0-16.0); Potassium Heart/CVR 3.9 MMOL/L (3.5-5.1)
[2017-04-11 13:26] LABS: Basophils % 0.1 % (0.0-0.8); Eosinophils # 0.1 10*3/uL (0.0-0.87); Eosinophils % 0.3 % (0.00-10.9); Hematocrit 26.6 VOL% (35.7-47.0); Hemoglobin 8.9 GM/DL (12.0-16.0); Immature Granulocytes % 2.1 %; Immature Granulocytes Absolute 0.48 #; Lymphocytes # 1.4 10*3/uL (1.4-4.0); Lymphocytes % 6.2 % (21.3-54.2); Mean Corpuscular HGB Conc 33.5 GM/DL (32-36); Mean Corpuscular Hemoglobin 34 PG (27-34); Mean Platelet Volume 11.1 FL (9.6-12.0); Monocytes # 1.2 10*3/uL (0.11-0.8); Monocytes % 5.3 % (1.7-12.7); Neutrophils # 19.5 10*3/uL (1.4-7.4); Platelet Count 198 T/CUMM (130-400); Red Blood Count 2.66 MC/CUMM (3.8-5.5); Red Cell Distribution Width 13.2 % (9.3-17.3); White Blood Count 22.7 T/CUMM (4-12)
[2017-04-11] MEDS: LACTATED RINGERS 1,000 ML IV PRN ×2 (13:30→15:03)
[2017-04-11 13:33] LABS: INR 1.1; PT Patient Result 11.8 SECS; Partial Thromboplastin Time 27.3 SECS (0-40)
[2017-04-11] MEDS: POTASSIUM CHLORIDE RIDER 20 MEQ in PREMIX 1 EACH IV PRN (13:38)
[2017-04-11 13:49] LABS: CKMB % 15.6 %
[2017-04-11 13:52] LABS: Hypochromasia Slight; Lymphocytes 7 % (20-55); Platelet Estimate Adequate; Segmented Neutrophils 91 % (50-85); Total Cells Counted 100
[2017-04-11 13:57] LABS: Troponin I Only 5.77 NG/ML (0.00-0.045)
[2017-04-11 14:56] LABS: ABG Base Excess -2.3 MMOL/L (-2.5-2.5); ABG HCO3 22.7 MMOL/L (20-26); ABG Oxygen Saturation 97.1 % (95-100); ABG PCO2 40.1 MM HG (35-48); ABG PH 7.371 (7.35-7.45); ABG PO2 97.5 MM HG (80-95); ABG TCO2 23.9 MMOL/L (23-27); Glucose Heart Surgery 154 MG/DL (74-106); Hemoglobin Heart Surgery 9.6 G/DL (12.0-16.0); Potassium Heart/CVR 4.6 MMOL/L (3.5-5.1)
[2017-04-11 14:58] LABS: Albumin 3.1 G/DL (3.4-5.0); Bilirubin,Total 0.7 MG/DL (0.2-1.0); Calcium 9.8 MG/DL (8.5-10.1); Magnesium 2.4 MG/DL (1.8-2.4); Osmolality,Calculated 289.5 MOS/KG (273-304); Total Protein 5.1 G/DL (6.4-8.3)
[2017-04-11] MEDS: KETOROLAC 30 MG/1 ML VIAL IV SCH ×2 (15:09→20:38)
[2017-04-11] MEDS: NITROGLYCERIN DRIP 50 MG/250 ML BOTTLE IV SCH (16:26)
[2017-04-11] MEDS: MORPHINE 2 MG/1 ML SYRINGE IV PRN ×2 (16:30→17:58)
[2017-04-11 16:37] LABS: ABG Base Excess -1.3 MMOL/L (-2.5-2.5); ABG HCO3 23.4 MMOL/L (20-26); ABG Oxygen Saturation 94.5 % (95-100); ABG PCO2 39.2 MM HG (35-48); ABG PH 7.394 (7.35-7.45); ABG PO2 67.1 MM HG (80-95); ABG TCO2 24.6 MMOL/L (23-27); Glucose Heart Surgery 138 MG/DL (74-106); Hemoglobin Heart Surgery 10.5 G/DL (12.0-16.0); Potassium Heart/CVR 4.7 MMOL/L (3.5-5.1)
[2017-04-11 17:36] LABS: ABG HCO3 23.9 MMOL/L (20-26); ABG PCO2 40.7 MM HG (35-48); ABG PH 7.387 (7.35-7.45); ABG PO2 115.6 MM HG (80-95); ABG TCO2 25.2 MMOL/L (23-27); Glucose Heart Surgery 127 MG/DL (74-106); Hemoglobin Heart Surgery 10.4 G/DL (12.0-16.0); Potassium Heart/CVR 4.6 MMOL/L (3.5-5.1)
[2017-04-11] MEDS: FERROUS SULFATE 325 MG TABLET PO SCH (18:22)
[2017-04-11] MEDS: MORPHINE 10 MG/1 ML VIAL IV PRN ×2 (19:13→22:10)
[2017-04-11 19:15] LABS: ABG Base Excess -1.1 MMOL/L (-2.5-2.5); ABG HCO3 23.6 MMOL/L (20-26); ABG Oxygen Saturation 96.2 % (95-100); ABG PCO2 39.5 MM HG (35-48); ABG PH 7.394 (7.35-7.45); ABG PO2 79.9 MM HG (80-95); ABG TCO2 24.8 MMOL/L (23-27); Glucose Heart Surgery 114 MG/DL (74-106); Hemoglobin Heart Surgery 10.4 G/DL (12.0-16.0); Potassium Heart/CVR 4.7 MMOL/L (3.5-5.1)
[2017-04-11] MEDS: ALBUTEROL/IPRATROPIUM 3 ML NEB RESP TX SCH ×2 (19:32→23:18)
[2017-04-11 21:04] LABS: ABG HCO3 22.7 MMOL/L (20-26); ABG PCO2 42.9 MM HG (35-48); ABG PH 7.349 (7.35-7.45); ABG TCO2 21.5 MMOL/L (23-27); Glucose Heart Surgery 153 MG/DL (74-106); Hematocrit Heart Surgery 31.2 PERCENT (37-47); Hemoglobin Heart Surgery 10.1 G/DL (12.0-16.0); Potassium Heart/CVR 4.9 MMOL/L (3.5-5.1)
[2017-04-11] MEDS ORDERED: FUROSEMIDE 40 MG/4 ML VIAL IV ONE (21:14)
[2017-04-11] MEDS ORDERED: FUROSEMIDE 40 MG/4 ML VIAL ONE (21:16)
[2017-04-11] MEDS: CEFUROXIME INJ 1,500 MG in SODIUM CHLORIDE 0.9% 50 ML IV SCH (21:26)
[2017-04-11 22:04] LABS: CKMB % 9.5 %
[2017-04-11 22:05] LABS: Troponin I Only 6.92 NG/ML (0.00-0.045)
[2017-04-11 23:54] LABS: ABG Base Excess -1.9 MMOL/L (-2.5-2.5); ABG HCO3 23.3 MMOL/L (20-26); ABG Oxygen Saturation 97.6 % (95-100); ABG PCO2 41.6 MM HG (35-48); ABG PH 7.367 (7.35-7.45); ABG PO2 107.5 MM HG (80-95); ABG TCO2 24.6 MMOL/L (23-27); Glucose Heart Surgery 177 MG/DL (74-106); Hemoglobin Heart Surgery 9.9 G/DL (12.0-16.0); Potassium Heart/CVR 4.2 MMOL/L (3.5-5.1)
[2017-04-12 00:37] LABS: ABG Base Excess -2.5 MMOL/L (-2.5-2.5); ABG HCO3 22.3 MMOL/L (20-26); ABG Oxygen Saturation 97.6 % (95-100); ABG PCO2 43.2 MM HG (35-48); ABG PH 7.339 (7.35-7.45); ABG PO2 91.6 MM HG (80-95); ABG TCO2 21.5 MMOL/L (23-27); Glucose Heart Surgery 174 MG/DL (74-106); Hematocrit Heart Surgery 28.8 PERCENT (37-47); Hemoglobin Heart Surgery 9.3 G/DL (12.0-16.0); Potassium Heart/CVR 4.1 MMOL/L (3.5-5.1)
[2017-04-12] MEDS: POTASSIUM CHLORIDE RIDER 20 MEQ in PREMIX 1 EACH IV PRN ×2 (01:09→07:34)
[2017-04-12] MEDS ORDERED: PROPOFOL 1,000 MG/100 ML BOTTLE IV ONE (01:13)
[2017-04-12] MEDS ORDERED: PROPOFOL 1,000 MG/100 ML BOTTLE IV SCH (01:30)
[2017-04-12 02:04] LABS: ABG Base Excess -3.2 MMOL/L (-2.5-2.5); ABG HCO3 21.7 MMOL/L (20-26); ABG Oxygen Saturation 97.9 % (95-100); ABG PCO2 41.5 MM HG (35-48); ABG PH 7.339 (7.35-7.45); ABG PO2 93.5 MM HG (80-95); ABG TCO2 20.4 MMOL/L (23-27); Glucose Heart Surgery 168 MG/DL (74-106); Hematocrit Heart Surgery 31.3 PERCENT (37-47); Hemoglobin Heart Surgery 10.1 G/DL (12.0-16.0); Potassium Heart/CVR 4.7 MMOL/L (3.5-5.1)
[2017-04-12] MEDS: KETOROLAC 30 MG/1 ML VIAL IV SCH ×4 (02:40→19:02)
[2017-04-12] MEDS: MORPHINE 2 MG/1 ML SYRINGE IV PRN (03:04)
[2017-04-12] MEDS: ALBUTEROL/IPRATROPIUM 3 ML NEB RESP TX SCH ×6 (03:19→23:55)
[2017-04-12 03:31] LABS: ABG Base Excess -1.8 MMOL/L (-2.5-2.5); ABG HCO3 22.7 MMOL/L (20-26); ABG Oxygen Saturation 98.7 % (95-100); ABG PCO2 37.4 MM HG (35-48); ABG PH 7.401 (7.35-7.45); ABG PO2 161.5 MM HG (80-95); ABG TCO2 23.8 MMOL/L (23-27); Glucose Heart Surgery 158 MG/DL (74-106); Hemoglobin Heart Surgery 10.7 G/DL (12.0-16.0); Potassium Heart/CVR 4.6 MMOL/L (3.5-5.1)
[2017-04-12 03:45] LABS: Basophils % 0.2 % (0.0-0.8); Hematocrit 30.4 VOL% (35.7-47.0); Hemoglobin 10.2 GM/DL (12.0-16.0); Immature Granulocytes % 0.7 %; Immature Granulocytes Absolute 0.14 #; Lymphocytes # 0.6 10*3/uL (1.4-4.0); Mean Corpuscular HGB Conc 33.6 GM/DL (32-36); Mean Corpuscular Hemoglobin 31 PG (27-34); Mean Corpuscular Volume 92.1 FL (87-102); Mean Platelet Volume 11.6 FL (9.6-12.0); Monocytes # 0.6 10*3/uL (0.11-0.8); Monocytes % 3.4 % (1.7-12.7); Neutrophils # 17.6 10*3/uL (1.4-7.4); Neutrophils % 92.7 % (38.7-73.9); Platelet Count 159 T/CUMM (130-400); White Blood Count 18.9 T/CUMM (4-12)
[2017-04-12] MEDS: ALBUMIN 5% 12.5 GM in PREMIX 1 EACH IV PRN (03:46)
[2017-04-12 04:08] LABS: Albumin 3.3 G/DL (3.4-5.0); Bilirubin,Direct 0.17 MG/DL (0.0-0.20); Bilirubin,Total 0.6 MG/DL (0.2-1.0); Calcium 8.7 MG/DL (8.5-10.1); Magnesium 2.3 MG/DL (1.8-2.4); Osmolality,Calculated 287.5 MOS/KG (273-304); Potassium 4.7 MMOL/L (3.5-5.1); Total Protein 5.3 G/DL (6.4-8.3)
[2017-04-12] MEDS: MORPHINE 10 MG/1 ML VIAL IV PRN (06:07)
[2017-04-12 06:13] LABS: ABG Base Excess -1.8 MMOL/L (-2.5-2.5); ABG HCO3 23.3 MMOL/L (20-26); ABG Oxygen Saturation 96.5 % (95-100); ABG PH 7.372 (7.35-7.45); ABG PO2 84.9 MM HG (80-95); ABG TCO2 24.5 MMOL/L (23-27); Glucose Heart Surgery 152 MG/DL (74-106); Hemoglobin Heart Surgery 10.6 G/DL (12.0-16.0); Potassium Heart/CVR 4.3 MMOL/L (3.5-5.1)
[2017-04-12 06:20] LABS: Band Neutrophils 9 % (0-10); Eosinophils 1 % (0-10); Giant Platelets Few; Hypochromasia 1+; Lymphocytes 3 % (20-55); Platelet Estimate Adequate; Polychromasia Slight; Segmented Neutrophils 83 % (50-85); Total Cells Counted 100
[2017-04-12 07:08] LABS: ABG Base Excess -2.4 MMOL/L (-2.5-2.5); ABG HCO3 23.5 MMOL/L (20-26); ABG Oxygen Saturation 95.9 % (95-100); ABG PCO2 45.4 MM HG (35-48); ABG PH 7.332 (7.35-7.45); ABG PO2 82.5 MM HG (80-95); ABG TCO2 24.9 MMOL/L (23-27); Glucose Heart Surgery 149 MG/DL (74-106); Hemoglobin Heart Surgery 10.8 G/DL (12.0-16.0); Potassium Heart/CVR 4.4 MMOL/L (3.5-5.1)
[2017-04-12 07:48] LABS: CKMB % 7.5 %
[2017-04-12 07:50] LABS: Troponin I Only 4.87 NG/ML (0.00-0.045)
[2017-04-12 08:33] LABS: ABG Base Excess -2.3 MMOL/L (-2.5-2.5); ABG HCO3 23.1 MMOL/L (20-26); ABG Oxygen Saturation 93.2 % (95-100); ABG PCO2 42.3 MM HG (35-48); ABG PH 7.355 (7.35-7.45); ABG PO2 62.6 MM HG (80-95); ABG TCO2 24.4 MMOL/L (23-27); Glucose Heart Surgery 147 MG/DL (74-106); Hemoglobin Heart Surgery 10.7 G/DL (12.0-16.0); Potassium Heart/CVR 4.4 MMOL/L (3.5-5.1)
[2017-04-12] MEDS: CEFUROXIME INJ 1,500 MG in SODIUM CHLORIDE 0.9% 50 ML IV SCH ×2 (09:00→20:38)
[2017-04-12] MEDS: SODIUM CHLOR 0.45% KCL 20 MEQ 20 MEQ/1,000 ML BAG IV SCH (09:10)
[2017-04-12] MEDS: SODIUM CHLORIDE 0.9% 1,000 ML IV SCH (09:22)
[2017-04-12] MEDS: INSULIN REGULAR 100 UNIT/ML SUBCUT SCH ×4 (10:41→21:47)
[2017-04-12] MEDS: CHLORHEXIDINE 0.12% ORAL RINSE 60 ML BOTTLE SWISH/SPIT SCH ×2 (14:47→20:45)
[2017-04-12 15:19] LABS: CKMB % 5.1 %
[2017-04-12 15:22] LABS: Troponin I Only 3.54 NG/ML (0.00-0.045)
[2017-04-12] MEDS: NITROGLYCERIN DRIP 50 MG/250 ML BOTTLE IV SCH (17:52)
[2017-04-12] MEDS: METOPROLOL TARTRATE 25 MG TABLET PO SCH (20:38)
[2017-04-13] MEDS: INSULIN REGULAR 100 UNIT/ML SUBCUT SCH ×4 (00:36→12:39)
[2017-04-13] MEDS: MORPHINE 2 MG/1 ML SYRINGE IV PRN (00:36)
[2017-04-13] MEDS: ALBUTEROL/IPRATROPIUM 3 ML NEB RESP TX SCH ×6 (03:39→23:58)
[2017-04-13 04:09] LABS: Basophils % 0.1 % (0.0-0.8); Eosinophils % 0.1 % (0.00-10.9); Hematocrit 29.2 VOL% (35.7-47.0); Hemoglobin 9.6 GM/DL (12.0-16.0); Immature Granulocytes % 0.6 %; Immature Granulocytes Absolute 0.11 #; Lymphocytes # 1.4 10*3/uL (1.4-4.0); Lymphocytes % 7.7 % (21.3-54.2); Mean Corpuscular HGB Conc 32.9 GM/DL (32-36); Mean Corpuscular Hemoglobin 31 PG (27-34); Mean Corpuscular Volume 94.8 FL (87-102); Mean Platelet Volume 11.7 FL (9.6-12.0); Monocytes # 1.5 10*3/uL (0.11-0.8); Monocytes % 8.4 % (1.7-12.7); Neutrophils # 14.6 10*3/uL (1.4-7.4); Neutrophils % 83.1 % (38.7-73.9); Platelet Count 145 T/CUMM (130-400); Red Blood Count 3.08 MC/CUMM (3.8-5.5); Red Cell Distribution Width 18.3 % (9.3-17.3); White Blood Count 17.6 T/CUMM (4-12)
[2017-04-13 04:55] LABS: Albumin 3.3 G/DL (3.4-5.0); Bilirubin,Direct 0.17 MG/DL (0.0-0.20); Bilirubin,Total 0.6 MG/DL (0.2-1.0); Calcium 8.8 MG/DL (8.5-10.1); Magnesium 2.9 MG/DL (1.8-2.4); Osmolality,Calculated 289.5 MOS/KG (273-304); Total Protein 5.4 G/DL (6.4-8.3)
[2017-04-13] MEDS: MORPHINE 10 MG/1 ML VIAL IV PRN ×2 (07:32→18:02)
[2017-04-13] MEDS ORDERED: METOPROLOL TARTRATE 25 MG TABLET PO SCH (09:00)
[2017-04-13] MEDS ORDERED: FUROSEMIDE 40 MG/4 ML VIAL IV ONE ×2 (09:34→20:00)
[2017-04-13] MEDS ORDERED: FUROSEMIDE 20 MG/2 ML VIAL ONE (10:08)
[2017-04-13] MEDS: tiZANidine 4 MG TABLET PO PRN ×2 (10:10→21:13)
[2017-04-13] MEDS: GABAPENTIN 300 MG CAPSULE PO SCH ×2 (10:12→21:11)
[2017-04-13] MEDS: FLUTICASONE 50 MCG NASAL SPRAY 16 GM BOTTLE BOTH NARES SCH ×2 (10:12→21:11)
[2017-04-13] MEDS: ASPIRIN CHEW 81 MG TABLET PO SCH (10:13)
[2017-04-13] MEDS: METOPROLOL TARTRATE 25 MG TABLET PO SCH ×2 (10:20→21:11)
[2017-04-13] MEDS: FLUTICASONE/SALMETEROL 500-50 DISKUS 14 DOSE INH SCH ×2 (10:23→21:10)
[2017-04-13] MEDS: CHLORHEXIDINE 0.12% ORAL RINSE 60 ML BOTTLE SWISH/SPIT SCH ×2 (10:23→21:11)
[2017-04-13] MEDS: SODIUM CHLOR 0.45% KCL 20 MEQ 20 MEQ/1,000 ML BAG IV SCH (12:04)
[2017-04-13] MEDS: SIMVASTATIN 40 MG TABLET PO SCH (21:19)
[2017-04-13] MEDS ORDERED: AMIODARONE INJ 150 MG in DEXTROSE 5% 100 ML IV ONE (22:37)
[2017-04-13] MEDS ORDERED: DILTIAZEM 50 MG/10 ML VIAL IV ONE (22:38)
[2017-04-13 22:52] LABS: Magnesium 2.7 MG/DL (1.8-2.4); Potassium 4.6 MMOL/L (3.5-5.1)
[2017-04-13] MEDS ORDERED: AMIODARONE INJ 450 MG in DEXTROSE 5% 241 ML IV SCH (23:00)
[2017-04-13] MEDS ORDERED: DILTIAZEM INJ 100 MG in SODIUM CHLORIDE 0.9% 100 ML IV SCH (23:00)
[2017-04-14] MEDS: ALBUTEROL/IPRATROPIUM 3 ML NEB RESP TX SCH ×6 (03:32→23:25)
[2017-04-14 04:52] LABS: Basophils % 0.2 % (0.0-0.8); Eosinophils # 0.1 10*3/uL (0.0-0.87); Eosinophils % 0.9 % (0.00-10.9); Hematocrit 26.8 VOL% (35.7-47.0); Hemoglobin 8.7 GM/DL (12.0-16.0); Immature Granulocytes % 0.8 %; Immature Granulocytes Absolute 0.13 #; Lymphocytes # 1.5 10*3/uL (1.4-4.0); Lymphocytes % 9.2 % (21.3-54.2); Mean Corpuscular HGB Conc 32.5 GM/DL (32-36); Mean Corpuscular Hemoglobin 31 PG (27-34); Mean Corpuscular Volume 96.1 FL (87-102); Mean Platelet Volume 11.9 FL (9.6-12.0); Monocytes # 1.2 10*3/uL (0.11-0.8); Monocytes % 7.3 % (1.7-12.7); Neutrophils # 13.4 10*3/uL (1.4-7.4); Neutrophils % 81.6 % (38.7-73.9); Platelet Count 132 T/CUMM (130-400); Red Blood Count 2.79 MC/CUMM (3.8-5.5); Red Cell Distribution Width 17.3 % (9.3-17.3); White Blood Count 16.5 T/CUMM (4-12)
[2017-04-14 05:30] LABS: Albumin 2.8 G/DL (3.4-5.0); Bilirubin,Direct 0.25 MG/DL (0.0-0.20); Bilirubin,Total 1.1 MG/DL (0.2-1.0); Calcium 8.4 MG/DL (8.5-10.1); Magnesium 2.8 MG/DL (1.8-2.4); Osmolality,Calculated 293.4 MOS/KG (273-304); Potassium 4.7 MMOL/L (3.5-5.1); Total Protein 5.1 G/DL (6.4-8.3)
[2017-04-14] MEDS: CHLORHEXIDINE 0.12% ORAL RINSE 60 ML BOTTLE SWISH/SPIT SCH ×2 (10:11→21:39)
[2017-04-14] MEDS: GABAPENTIN 300 MG CAPSULE PO SCH ×2 (10:12→21:40)
[2017-04-14] MEDS: ASPIRIN CHEW 81 MG TABLET PO SCH (10:12)
[2017-04-14] MEDS: AMIODARONE 200 MG TABLET PO SCH ×2 (10:12→21:40)
[2017-04-14] MEDS: METOPROLOL TARTRATE 25 MG TABLET PO SCH ×2 (10:12→21:40)
[2017-04-14] MEDS: FLUTICASONE/SALMETEROL 500-50 DISKUS 14 DOSE INH SCH ×2 (10:13→21:39)
[2017-04-14] MEDS: FLUTICASONE 50 MCG NASAL SPRAY 16 GM BOTTLE BOTH NARES SCH ×2 (10:14→21:39)
[2017-04-14] MEDS: SODIUM CHLOR 0.45% KCL 20 MEQ 20 MEQ/1,000 ML BAG IV SCH (10:14)
[2017-04-14] MEDS: POTASSIUM IODIDE ORAL SOLN 1,000 MG/ML BOTTLE PO SCH ×2 (15:48→21:40)
[2017-04-14] MEDS: tiZANidine 4 MG TABLET PO PRN (17:08)
[2017-04-14] MEDS: SIMVASTATIN 40 MG TABLET PO SCH (21:40)
[2017-04-14] MEDS: APIXABAN 2.5 MG TABLET PO SCH (22:42)
[2017-04-15] MEDS: ALBUTEROL/IPRATROPIUM 3 ML NEB RESP TX SCH ×5 (02:47→20:18)
[2017-04-15 03:51] LABS: ABG Base Excess 0.2 MMOL/L (-2.5-2.5); ABG HCO3 23.7 MMOL/L (20-26); ABG PH 7.462 (7.35-7.45); ABG PO2 59.8 MM HG (80-95); ABG TCO2 24.8 MMOL/L (23-27)
[2017-04-15 04:51] LABS: Basophils # 0.1 10*3/uL (0.0-0.2); Basophils % 0.3 % (0.0-0.8); Eosinophils # 0.4 10*3/uL (0.0-0.87); Eosinophils % 2.4 % (0.00-10.9); Hemoglobin 9.3 GM/DL (12.0-16.0); Immature Granulocytes % 0.8 %; Immature Granulocytes Absolute 0.14 #; Lymphocytes # 1.9 10*3/uL (1.4-4.0); Lymphocytes % 10.8 % (21.3-54.2); Mean Corpuscular HGB Conc 32.1 GM/DL (32-36); Mean Corpuscular Hemoglobin 31 PG (27-34); Mean Corpuscular Volume 95.7 FL (87-102); Monocytes # 1.5 10*3/uL (0.11-0.8); Monocytes % 8.7 % (1.7-12.7); Neutrophils # 13.4 10*3/uL (1.4-7.4); Platelet Count 153 T/CUMM (130-400); Red Blood Count 3.03 MC/CUMM (3.8-5.5); Red Cell Distribution Width 16.3 % (9.3-17.3); White Blood Count 17.5 T/CUMM (4-12)
[2017-04-15 05:20] LABS: Calcium 8.1 MG/DL (8.5-10.1); Magnesium 2.9 MG/DL (1.8-2.4); Osmolality,Calculated 288.7 MOS/KG (273-304); Potassium 4.6 MMOL/L (3.5-5.1)
[2017-04-15] MEDS: CHLORHEXIDINE 0.12% ORAL RINSE 60 ML BOTTLE SWISH/SPIT SCH ×3 (10:00→21:16)
[2017-04-15] MEDS: AMIODARONE 200 MG TABLET PO SCH ×2 (10:00→21:15)
[2017-04-15] MEDS: FLUTICASONE/SALMETEROL 500-50 DISKUS 14 DOSE INH SCH ×2 (10:00→21:16)
[2017-04-15] MEDS: APIXABAN 2.5 MG TABLET PO SCH ×2 (10:00→21:15)
[2017-04-15] MEDS: POTASSIUM IODIDE ORAL SOLN 1,000 MG/ML BOTTLE PO SCH ×3 (10:00→21:15)
[2017-04-15] MEDS: METOPROLOL TARTRATE 25 MG TABLET PO SCH ×2 (10:00→21:15)
[2017-04-15] MEDS: FLUTICASONE 50 MCG NASAL SPRAY 16 GM BOTTLE BOTH NARES SCH ×2 (10:00→21:16)
[2017-04-15] MEDS: ASPIRIN CHEW 81 MG TABLET PO SCH (10:00)
[2017-04-15] MEDS: GABAPENTIN 300 MG CAPSULE PO SCH ×2 (10:00→21:15)
[2017-04-15] MEDS ORDERED: ONDANSETRON 4 MG/2 ML VIAL IV PRN (10:31)
[2017-04-15] MEDS ORDERED: oxyCODONE/ACETAMINOPHEN 5-325 MG TABLET PO PRN (10:31)
[2017-04-15] MEDS ORDERED: GLUCAGON 1 MG VIAL IM PRN ×2 (10:31)
[2017-04-15] MEDS ORDERED: MAGNESIUM SULF RIDER 4 GM in PREMIX 1 EACH IV PRN (10:31)
[2017-04-15] MEDS ORDERED: ALUMINUM/MAGNES/SIMETH MAX STR 30 ML UDCUP PO PRN (10:31)
[2017-04-15] MEDS ORDERED: ACETAMINOPHEN 325 MG TABLET PO PRN (10:31)
[2017-04-15] MEDS ORDERED: SODIUM CHLOR 0.45% KCL 20 MEQ 20 MEQ/1,000 ML BAG IV SCH (10:31)
[2017-04-15] MEDS ORDERED: POTASSIUM CHLORIDE 20 MEQ TABLET PO PRN (10:31)
[2017-04-15] MEDS ORDERED: CYANOCOBALAMIN 1000 MCG/1 ML VIAL IM SCH (10:31)
[2017-04-15] MEDS ORDERED: MAGNESIUM SULF RIDER 2 GM in PREMIX 1 EACH IV PRN (10:31)
[2017-04-15] MEDS ORDERED: DEXTROSE 50% 25 GM/50 ML VIAL IV PRN ×2 (10:31)
[2017-04-15] MEDS: MELOXICAM 7.5 MG TABLET PO SCH (12:10)
[2017-04-15] MEDS: DOCUSATE SODIUM 100 MG CAPSULE PO SCH (12:11)
[2017-04-15] MEDS: ASCORBIC ACID 500 MG TABLET PO SCH (12:11)
[2017-04-15] MEDS: PANTOPRAZOLE 40 MG TABLET PO SCH (12:11)
[2017-04-15] MEDS: LORATADINE 10 MG TABLET PO SCH (12:12)
[2017-04-15] MEDS: VITAMIN E 400 UNIT CAPSULE PO SCH (12:12)
[2017-04-15] MEDS: FERROUS SULFATE 325 MG TABLET PO SCH (12:12)
[2017-04-15] MEDS: CHOLECALCIFEROL 400 UNIT TABLET PO SCH (12:12)
[2017-04-15] MEDS: SODIUM CHLOR 0.45% KCL 20 MEQ 20 MEQ/1,000 ML BAG IV SCH (14:18)
[2017-04-15] MEDS: tiZANidine 4 MG TABLET PO PRN (18:08)
[2017-04-15] MEDS: MONTELUKAST 10 MG TABLET PO SCH (18:08)
[2017-04-15] MEDS: SIMVASTATIN 40 MG TABLET PO SCH (21:15)
[2017-04-16] MEDS: ALBUTEROL/IPRATROPIUM 3 ML NEB RESP TX SCH ×7 (01:23→23:38)
[2017-04-16 03:44] LABS: Basophils % 0.3 % (0.0-0.8); Eosinophils # 0.7 10*3/uL (0.0-0.87); Eosinophils % 4.1 % (0.00-10.9); Hematocrit 28.6 VOL% (35.7-47.0); Hemoglobin 9.2 GM/DL (12.0-16.0); Immature Granulocytes % 0.7 %; Immature Granulocytes Absolute 0.11 #; Lymphocytes # 2.4 10*3/uL (1.4-4.0); Lymphocytes % 15.1 % (21.3-54.2); Mean Corpuscular HGB Conc 32.2 GM/DL (32-36); Mean Corpuscular Hemoglobin 31 PG (27-34); Mean Corpuscular Volume 96.3 FL (87-102); Mean Platelet Volume 11.7 FL (9.6-12.0); Monocytes # 1.5 10*3/uL (0.11-0.8); Monocytes % 9.4 % (1.7-12.7); Neutrophils # 11.1 10*3/uL (1.4-7.4); Neutrophils % 70.4 % (38.7-73.9); Platelet Count 197 T/CUMM (130-400); Red Blood Count 2.97 MC/CUMM (3.8-5.5); Red Cell Distribution Width 15.8 % (9.3-17.3); White Blood Count 15.7 T/CUMM (4-12)
[2017-04-16 04:12] LABS: Alanine Aminotransferase 27 U/L (13-56); Albumin 2.5 G/DL (3.4-5.0); Alkaline Phosphatase 83 U/L (45-117); Aspartate Amino Transferase 18 U/L (0-37); Bilirubin,Indirect 0.7 MG/DL (0.0-1.0); Blood Urea Nitrogen 41 MG/DL (7-18); Glucose 116 MG/DL (74-106); Magnesium 2.9 MG/DL (1.8-2.4); Osmolality,Calculated 289.4 MOS/KG (273-304); Potassium 4.6 MMOL/L (3.5-5.1); Sodium 140 MMOL/L (136-145)
[2017-04-16] MEDS ORDERED: FUROSEMIDE 40 MG/4 ML VIAL IV ONE (06:00)
[2017-04-16] MEDS: POTASSIUM IODIDE ORAL SOLN 1,000 MG/ML BOTTLE PO SCH ×3 (08:47→21:29)
[2017-04-16] MEDS: METOPROLOL TARTRATE 25 MG TABLET PO SCH ×2 (08:47→21:27)
[2017-04-16] MEDS: APIXABAN 2.5 MG TABLET PO SCH ×2 (08:47→21:27)
[2017-04-16] MEDS: GABAPENTIN 300 MG CAPSULE PO SCH ×2 (08:47→21:26)
[2017-04-16] MEDS: PANTOPRAZOLE 40 MG TABLET PO SCH (08:47)
[2017-04-16] MEDS: MELOXICAM 7.5 MG TABLET PO SCH (08:47)
[2017-04-16] MEDS: tiZANidine 4 MG TABLET PO PRN ×3 (08:47→21:27)
[2017-04-16] MEDS: FERROUS SULFATE 325 MG TABLET PO SCH (08:47)
[2017-04-16] MEDS: LORATADINE 10 MG TABLET PO SCH (08:47)
[2017-04-16] MEDS: AMIODARONE 200 MG TABLET PO SCH ×2 (08:48→21:26)
[2017-04-16] MEDS: CHLORHEXIDINE 0.12% ORAL RINSE 60 ML BOTTLE SWISH/SPIT SCH ×2 (08:48→21:29)
[2017-04-16] MEDS: MAGNESIUM HYDROXIDE SUSP 30 ML UDCUP PO PRN (08:48)
[2017-04-16] MEDS: ASPIRIN CHEW 81 MG TABLET PO SCH (08:48)
[2017-04-16] MEDS: DOCUSATE SODIUM 100 MG CAPSULE PO SCH (08:48)
[2017-04-16] MEDS: FLUTICASONE/SALMETEROL 500-50 DISKUS 14 DOSE INH SCH ×2 (08:49→21:29)
[2017-04-16] MEDS: FLUTICASONE 50 MCG NASAL SPRAY 16 GM BOTTLE BOTH NARES SCH ×2 (08:49→21:29)
[2017-04-16] MEDS: VITAMIN E 400 UNIT CAPSULE PO SCH (13:33)
[2017-04-16] MEDS: CHOLECALCIFEROL 400 UNIT TABLET PO SCH (13:33)
[2017-04-16] MEDS: ASCORBIC ACID 500 MG TABLET PO SCH (13:34)
[2017-04-16] MEDS ORDERED: ZINC OXIDE PASTE 113 GM TUBE TOP PRN (14:42)
[2017-04-16] MEDS: MONTELUKAST 10 MG TABLET PO SCH (18:00)
[2017-04-16] MEDS: SIMVASTATIN 40 MG TABLET PO SCH (21:27)
[2017-04-17] MEDS: ALBUTEROL/IPRATROPIUM 3 ML NEB RESP TX SCH ×6 (03:22→23:59)
[2017-04-17 06:07] LABS: Basophils # 0.1 10*3/uL (0.0-0.2); Basophils % 0.3 % (0.0-0.8); Eosinophils # 0.9 10*3/uL (0.0-0.87); Eosinophils % 5.7 % (0.00-10.9); Hematocrit 28.3 VOL% (35.7-47.0); Hemoglobin 8.9 GM/DL (12.0-16.0); Immature Granulocytes % 1.1 %; Immature Granulocytes Absolute 0.17 #; Lymphocytes # 2.8 10*3/uL (1.4-4.0); Lymphocytes % 18.6 % (21.3-54.2); Mean Corpuscular HGB Conc 31.4 GM/DL (32-36); Mean Corpuscular Hemoglobin 31 PG (27-34); Mean Corpuscular Volume 97.6 FL (87-102); Mean Platelet Volume 11.7 FL (9.6-12.0); Monocytes # 1.4 10*3/uL (0.11-0.8); Monocytes % 9.2 % (1.7-12.7); Neutrophils # 9.8 10*3/uL (1.4-7.4); Neutrophils % 65.1 % (38.7-73.9); Platelet Count 257 T/CUMM (130-400); Red Cell Distribution Width 15.6 % (9.3-17.3); White Blood Count 15.1 T/CUMM (4-12)
[2017-04-17 06:16] LABS: Calcium 8.1 MG/DL (8.5-10.1); Osmolality,Calculated 292.4 MOS/KG (273-304); Potassium 5.1 MMOL/L (3.5-5.1)
[2017-04-17 06:21] LABS: Alanine Aminotransferase 27 U/L (13-56); Albumin 2.5 G/DL (3.4-5.0); Alkaline Phosphatase 77 U/L (45-117); Aspartate Amino Transferase 15 U/L (0-37); Bilirubin,Indirect 0.3 MG/DL (0.0-1.0); Blood Urea Nitrogen 47 MG/DL (7-18); Calcium 8.1 MG/DL (8.5-10.1); Glucose 90 MG/DL (74-106); Osmolality,Calculated 286.7 MOS/KG (273-304); Sodium 138 MMOL/L (136-145); Total Protein 4.9 G/DL (6.4-8.3)
[2017-04-17 06:26] LABS: Troponin I Only 0.616 NG/ML (0.00-0.045)
[2017-04-17] MEDS: FLUTICASONE/SALMETEROL 500-50 DISKUS 14 DOSE INH SCH ×2 (08:50→22:20)
[2017-04-17] MEDS: ASPIRIN CHEW 81 MG TABLET PO SCH (08:50)
[2017-04-17] MEDS: LORATADINE 10 MG TABLET PO SCH (08:51)
[2017-04-17] MEDS: APIXABAN 2.5 MG TABLET PO SCH ×2 (08:51→22:10)
[2017-04-17] MEDS: AMIODARONE 200 MG TABLET PO SCH (08:51)
[2017-04-17] MEDS: DOCUSATE SODIUM 100 MG CAPSULE PO SCH (08:51)
[2017-04-17] MEDS: FERROUS SULFATE 325 MG TABLET PO SCH (08:52)
[2017-04-17] MEDS: GABAPENTIN 300 MG CAPSULE PO SCH ×2 (08:52→22:19)
[2017-04-17] MEDS: PANTOPRAZOLE 40 MG TABLET PO SCH (08:52)
[2017-04-17] MEDS: FLUTICASONE 50 MCG NASAL SPRAY 16 GM BOTTLE BOTH NARES SCH ×2 (08:52→22:11)
[2017-04-17] MEDS: METOPROLOL TARTRATE 25 MG TABLET PO SCH ×2 (08:52→22:09)
[2017-04-17] MEDS: POTASSIUM IODIDE ORAL SOLN 1,000 MG/ML BOTTLE PO SCH ×3 (08:53→22:12)
[2017-04-17] MEDS: MELOXICAM 7.5 MG TABLET PO SCH (08:56)
[2017-04-17] MEDS: MAGNESIUM HYDROXIDE SUSP 30 ML UDCUP PO PRN (08:56)
[2017-04-17] MEDS: CHLORHEXIDINE 0.12% ORAL RINSE 60 ML BOTTLE SWISH/SPIT SCH ×2 (10:14→22:10)
[2017-04-17] MEDS: ASCORBIC ACID 500 MG TABLET PO SCH (11:53)
[2017-04-17] MEDS: CHOLECALCIFEROL 400 UNIT TABLET PO SCH (11:54)
[2017-04-17] MEDS: VITAMIN E 400 UNIT CAPSULE PO SCH (11:54)
[2017-04-17] MEDS: tiZANidine 4 MG TABLET PO PRN (15:42)
[2017-04-17] MEDS: MONTELUKAST 10 MG TABLET PO SCH (19:35)
[2017-04-17] MEDS: SIMVASTATIN 40 MG TABLET PO SCH (22:10)
[2017-04-18] MEDS: tiZANidine 4 MG TABLET PO PRN ×2 (03:37→22:15)
[2017-04-18] MEDS: ALBUTEROL/IPRATROPIUM 3 ML NEB RESP TX SCH ×6 (03:54→23:24)
[2017-04-18 06:14] LABS: Calcium 8.4 MG/DL (8.5-10.1); Magnesium 3.2 MG/DL (1.8-2.4); Osmolality,Calculated 290.5 MOS/KG (273-304); Potassium 5.6 MMOL/L (3.5-5.1)
[2017-04-18] MEDS: DOCUSATE SODIUM 100 MG CAPSULE PO SCH (08:47)
[2017-04-18] MEDS: LORATADINE 10 MG TABLET PO SCH (08:47)
[2017-04-18] MEDS: ASPIRIN CHEW 81 MG TABLET PO SCH (08:47)
[2017-04-18] MEDS: FLUTICASONE/SALMETEROL 500-50 DISKUS 14 DOSE INH SCH ×2 (08:47→22:18)
[2017-04-18] MEDS: FLUTICASONE 50 MCG NASAL SPRAY 16 GM BOTTLE BOTH NARES SCH ×2 (08:48→22:19)
[2017-04-18] MEDS: APIXABAN 2.5 MG TABLET PO SCH ×2 (08:48→22:18)
[2017-04-18] MEDS: MELOXICAM 7.5 MG TABLET PO SCH (08:49)
[2017-04-18] MEDS: FERROUS SULFATE 325 MG TABLET PO SCH (08:49)
[2017-04-18] MEDS: GABAPENTIN 300 MG CAPSULE PO SCH ×2 (08:52→22:15)
[2017-04-18] MEDS: PANTOPRAZOLE 40 MG TABLET PO SCH (08:54)
[2017-04-18] MEDS: CHLORHEXIDINE 0.12% ORAL RINSE 60 ML BOTTLE SWISH/SPIT SCH ×2 (08:54→22:19)
[2017-04-18] MEDS: POTASSIUM IODIDE ORAL SOLN 1,000 MG/ML BOTTLE PO SCH (08:57)
[2017-04-18] MEDS ORDERED: AMIODARONE 200 MG TABLET PO SCH (09:00)
[2017-04-18] MEDS: CHOLECALCIFEROL 400 UNIT TABLET PO SCH (12:33)
[2017-04-18] MEDS: VITAMIN E 400 UNIT CAPSULE PO SCH (12:33)
[2017-04-18] MEDS: ASCORBIC ACID 500 MG TABLET PO SCH (12:33)
[2017-04-18] MEDS: NYSTATIN 500,000 UNIT/5 ML UDCUP SWISH/SWAL SCH ×3 (13:17→22:18)
[2017-04-18] MEDS: MONTELUKAST 10 MG TABLET PO SCH (18:20)
[2017-04-18] MEDS: ZALEPLON 5 MG CAPSULE PO PRN (22:15)
[2017-04-18] MEDS: SIMVASTATIN 40 MG TABLET PO SCH (22:15)
[2017-04-19] MEDS: ALBUTEROL/IPRATROPIUM 3 ML NEB RESP TX SCH ×6 (02:53→23:29)
[2017-04-19 05:56] LABS: Basophils # 0.1 10*3/uL (0.0-0.2); Basophils % 0.4 % (0.0-0.8); Eosinophils # 0.8 10*3/uL (0.0-0.87); Eosinophils % 6.1 % (0.00-10.9); Hematocrit 26.5 VOL% (35.7-47.0); Hemoglobin 8.5 GM/DL (12.0-16.0); Immature Granulocytes % 1.3 %; Immature Granulocytes Absolute 0.17 #; Lymphocytes % 15.8 % (21.3-54.2); Mean Corpuscular HGB Conc 32.1 GM/DL (32-36); Mean Corpuscular Hemoglobin 31 PG (27-34); Mean Platelet Volume 10.7 FL (9.6-12.0); Monocytes # 1.1 10*3/uL (0.11-0.8); Monocytes % 8.6 % (1.7-12.7); Neutrophils # 8.7 10*3/uL (1.4-7.4); Neutrophils % 67.8 % (38.7-73.9); Platelet Count 329 T/CUMM (130-400); Red Blood Count 2.76 MC/CUMM (3.8-5.5); Red Cell Distribution Width 15.4 % (9.3-17.3); White Blood Count 12.9 T/CUMM (4-12)
[2017-04-19 06:27] LABS: Alanine Aminotransferase 21 U/L (13-56); Albumin 2.5 G/DL (3.4-5.0); Alkaline Phosphatase 79 U/L (45-117); Aspartate Amino Transferase 15 U/L (0-37); Bilirubin,Indirect 0.5 MG/DL (0.0-1.0); Blood Urea Nitrogen 41 MG/DL (7-18); Calcium 8.4 MG/DL (8.5-10.1); Glucose 103 MG/DL (74-106); Magnesium 2.9 MG/DL (1.8-2.4); Osmolality,Calculated 288.4 MOS/KG (273-304); Potassium 5.4 MMOL/L (3.5-5.1); Sodium 140 MMOL/L (136-145)
[2017-04-19 06:31] LABS: Troponin I Only 0.215 NG/ML (0.00-0.045)
[2017-04-19] MEDS: ASPIRIN CHEW 81 MG TABLET PO SCH (08:19)
[2017-04-19] MEDS: FERROUS SULFATE 325 MG TABLET PO SCH (08:19)
[2017-04-19] MEDS: APIXABAN 2.5 MG TABLET PO SCH ×2 (08:19→21:16)
[2017-04-19] MEDS: tiZANidine 4 MG TABLET PO PRN ×3 (08:19→21:17)
[2017-04-19] MEDS: MELOXICAM 7.5 MG TABLET PO SCH (08:19)
[2017-04-19] MEDS: PANTOPRAZOLE 40 MG TABLET PO SCH (08:19)
[2017-04-19] MEDS: GABAPENTIN 300 MG CAPSULE PO SCH ×2 (08:19→21:17)
[2017-04-19] MEDS: DOCUSATE SODIUM 100 MG CAPSULE PO SCH (08:19)
[2017-04-19] MEDS: LORATADINE 10 MG TABLET PO SCH (08:19)
[2017-04-19] MEDS: NYSTATIN 500,000 UNIT/5 ML UDCUP SWISH/SWAL SCH ×4 (08:20→21:19)
[2017-04-19] MEDS: FLUTICASONE 50 MCG NASAL SPRAY 16 GM BOTTLE BOTH NARES SCH ×2 (08:21→21:27)
[2017-04-19] MEDS: FLUTICASONE/SALMETEROL 500-50 DISKUS 14 DOSE INH SCH ×2 (08:21→21:22)
[2017-04-19] MEDS: CHLORHEXIDINE 0.12% ORAL RINSE 60 ML BOTTLE SWISH/SPIT SCH ×2 (08:26→21:24)
[2017-04-19] MEDS: CHOLECALCIFEROL 400 UNIT TABLET PO SCH (12:31)
[2017-04-19] MEDS: VITAMIN E 400 UNIT CAPSULE PO SCH (12:31)
[2017-04-19] MEDS: ASCORBIC ACID 500 MG TABLET PO SCH (12:32)
[2017-04-19] MEDS: MONTELUKAST 10 MG TABLET PO SCH ×2 (19:30→21:21)
[2017-04-19] MEDS: ZALEPLON 5 MG CAPSULE PO PRN (21:17)
[2017-04-19] MEDS: SIMVASTATIN 40 MG TABLET PO SCH (21:19)
[2017-04-20] MEDS: tiZANidine 4 MG TABLET PO PRN ×4 (03:29→21:47)
[2017-04-20 03:44] LABS: Basophils # 0.1 10*3/uL (0.0-0.2); Basophils % 0.5 % (0.0-0.8); Eosinophils % 6.9 % (0.00-10.9); Hematocrit 27.9 VOL% (35.7-47.0); Hemoglobin 8.9 GM/DL (12.0-16.0); Immature Granulocytes % 1.8 %; Immature Granulocytes Absolute 0.27 #; Lymphocytes # 2.4 10*3/uL (1.4-4.0); Lymphocytes % 16.4 % (21.3-54.2); Mean Corpuscular HGB Conc 31.9 GM/DL (32-36); Mean Corpuscular Hemoglobin 31 PG (27-34); Mean Corpuscular Volume 97.2 FL (87-102); Mean Platelet Volume 11.2 FL (9.6-12.0); Monocytes # 1.3 10*3/uL (0.11-0.8); Monocytes % 8.5 % (1.7-12.7); Neutrophils # 9.7 10*3/uL (1.4-7.4); Neutrophils % 65.9 % (38.7-73.9); Platelet Count 355 T/CUMM (130-400); Red Blood Count 2.87 MC/CUMM (3.8-5.5); Red Cell Distribution Width 15.4 % (9.3-17.3); White Blood Count 14.7 T/CUMM (4-12)
[2017-04-20] MEDS: ALBUTEROL/IPRATROPIUM 3 ML NEB RESP TX SCH ×6 (03:45→23:29)
[2017-04-20 04:35] LABS: Alanine Aminotransferase 22 U/L (13-56); Albumin 2.5 G/DL (3.4-5.0); Alkaline Phosphatase 82 U/L (45-117); Aspartate Amino Transferase 14 U/L (0-37); Bilirubin,Indirect 0.3 MG/DL (0.0-1.0); Blood Urea Nitrogen 46 MG/DL (7-18); Calcium 8.4 MG/DL (8.5-10.1); Glucose 109 MG/DL (74-106); Magnesium 3.1 MG/DL (1.8-2.4); Osmolality,Calculated 287.7 MOS/KG (273-304); Sodium 138 MMOL/L (136-145); Total Protein 5.1 G/DL (6.4-8.3)
[2017-04-20 04:44] LABS: Troponin I Only 0.139 NG/ML (0.00-0.045)
[2017-04-20] MEDS ORDERED: FUROSEMIDE 40 MG/4 ML VIAL IV ONE ×2 (04:54→14:00)
[2017-04-20] MEDS ORDERED: FLUCONAZOLE 200 MG TABLET PO ONE (08:52)
[2017-04-20] MEDS: GABAPENTIN 300 MG CAPSULE PO SCH (09:53)
[2017-04-20] MEDS: MELOXICAM 7.5 MG TABLET PO SCH (09:53)
[2017-04-20] MEDS: APIXABAN 2.5 MG TABLET PO SCH ×2 (09:54→21:47)
[2017-04-20] MEDS: LORATADINE 10 MG TABLET PO SCH (09:54)
[2017-04-20] MEDS: ASPIRIN CHEW 81 MG TABLET PO SCH (09:54)
[2017-04-20] MEDS: PANTOPRAZOLE 40 MG TABLET PO SCH (09:54)
[2017-04-20] MEDS: NYSTATIN 500,000 UNIT/5 ML UDCUP SWISH/SWAL SCH ×4 (09:54→21:48)
[2017-04-20] MEDS: DOCUSATE SODIUM 100 MG CAPSULE PO SCH (09:54)
[2017-04-20] MEDS: FERROUS SULFATE 325 MG TABLET PO SCH (09:54)
[2017-04-20] MEDS: FLUTICASONE/SALMETEROL 500-50 DISKUS 14 DOSE INH SCH ×2 (09:55→21:50)
[2017-04-20] MEDS: CHLORHEXIDINE 0.12% ORAL RINSE 60 ML BOTTLE SWISH/SPIT SCH ×2 (09:55→22:44)
[2017-04-20] MEDS: FLUTICASONE 50 MCG NASAL SPRAY 16 GM BOTTLE BOTH NARES SCH ×2 (09:55→21:51)
[2017-04-20] MEDS ORDERED: SODIUM POLYSTYRENE SULFATE 15 GM/60 ML BOTTLE PO ONE (11:00)
[2017-04-20] MEDS: ASCORBIC ACID 500 MG TABLET PO SCH (11:37)
[2017-04-20] MEDS: VITAMIN E 400 UNIT CAPSULE PO SCH (11:37)
[2017-04-20] MEDS: CHOLECALCIFEROL 400 UNIT TABLET PO SCH (11:37)
[2017-04-20 14:28] LABS: Apearance,Urine CLOUDY (Clear); Bacteria,Urine Many /HPF (Few); Bilirubin,Urine Negative (Negative); Blood, Urine Moderate mg/dL (Negative); Glucose,Urine (UA) Negative (Negative); Ketones,Urine Negative (Negative); Nitrite,Urine Positive (Negative); Protein,Urine Negative; RBC,Urine 11 /HPF (0-4); Squamous Epithelial Cell,Urine Occasional /HPF (0-10); Urine Color Yellow (Yellow); Urine Specific Gravity 1.008 (1.001-1.035); Urine Urobilinogen < 2.0 EU/DL (0.2-1.0); WBC,Urine 443 /HPF (0-6)
[2017-04-20] MEDS: SIMVASTATIN 40 MG TABLET PO SCH (21:47)
[2017-04-20] MEDS: GABAPENTIN 100 MG CAPSULE PO SCH (21:47)
[2017-04-20] MEDS: MONTELUKAST 10 MG TABLET PO SCH (21:47)
[2017-04-20] MEDS: ZALEPLON 5 MG CAPSULE PO PRN (21:48)
[2017-04-21] MEDS: tiZANidine 4 MG TABLET PO PRN ×3 (02:21→21:57)
[2017-04-21] MEDS: ALBUTEROL/IPRATROPIUM 3 ML NEB RESP TX SCH ×6 (03:33→23:37)
[2017-04-21 05:49] LABS: Basophils # 0.1 10*3/uL (0.0-0.2); Basophils % 0.4 % (0.0-0.8); Eosinophils # 0.9 10*3/uL (0.0-0.87); Eosinophils % 7.6 % (0.00-10.9); Hematocrit 27.1 VOL% (35.7-47.0); Hemoglobin 8.5 GM/DL (12.0-16.0); Immature Granulocytes % 1.8 %; Immature Granulocytes Absolute 0.23 #; Lymphocytes # 2.2 10*3/uL (1.4-4.0); Mean Corpuscular HGB Conc 31.4 GM/DL (32-36); Mean Corpuscular Hemoglobin 31 PG (27-34); Mean Corpuscular Volume 97.8 FL (87-102); Mean Platelet Volume 11.1 FL (9.6-12.0); Monocytes # 1.1 10*3/uL (0.11-0.8); Monocytes % 8.7 % (1.7-12.7); Neutrophils # 7.9 10*3/uL (1.4-7.4); Neutrophils % 63.5 % (38.7-73.9); Platelet Count 362 T/CUMM (130-400); Red Blood Count 2.77 MC/CUMM (3.8-5.5); Red Cell Distribution Width 15.5 % (9.3-17.3); White Blood Count 12.4 T/CUMM (4-12)
[2017-04-21 06:18] LABS: Calcium 8.2 MG/DL (8.5-10.1); Magnesium 2.8 MG/DL (1.8-2.4); Osmolality,Calculated 286.7 MOS/KG (273-304); Potassium 5.1 MMOL/L (3.5-5.1)
[2017-04-21] MEDS: ASPIRIN CHEW 81 MG TABLET PO SCH (08:00)
[2017-04-21] MEDS: FUROSEMIDE 40 MG TABLET PO SCH (08:00)
[2017-04-21] MEDS: FERROUS SULFATE 325 MG TABLET PO SCH (08:01)
[2017-04-21] MEDS: DOCUSATE SODIUM 100 MG CAPSULE PO SCH (08:01)
[2017-04-21] MEDS: PANTOPRAZOLE 40 MG TABLET PO SCH (08:01)
[2017-04-21] MEDS: APIXABAN 2.5 MG TABLET PO SCH (08:01)
[2017-04-21] MEDS: LORATADINE 10 MG TABLET PO SCH (08:01)
[2017-04-21] MEDS: FLUCONAZOLE 100 MG TABLET PO SCH (08:01)
[2017-04-21] MEDS: NYSTATIN 500,000 UNIT/5 ML UDCUP SWISH/SWAL SCH ×4 (08:01→21:59)
[2017-04-21] MEDS: GABAPENTIN 100 MG CAPSULE PO SCH (08:01)
[2017-04-21] MEDS: FLUTICASONE/SALMETEROL 500-50 DISKUS 14 DOSE INH SCH ×2 (08:03→22:04)
[2017-04-21] MEDS: FLUTICASONE 50 MCG NASAL SPRAY 16 GM BOTTLE BOTH NARES SCH ×2 (08:03→22:06)
[2017-04-21] MEDS ORDERED: LEVOFLOXACIN 500 MG TABLET PO SCH (09:00)
[2017-04-21] MEDS: CHLORHEXIDINE 0.12% ORAL RINSE 60 ML BOTTLE SWISH/SPIT SCH ×2 (09:52→22:04)
[2017-04-21] MEDS: CHOLECALCIFEROL 400 UNIT TABLET PO SCH (12:01)
[2017-04-21] MEDS: VITAMIN E 400 UNIT CAPSULE PO SCH (12:01)
[2017-04-21] MEDS: ASCORBIC ACID 500 MG TABLET PO SCH (12:01)
[2017-04-21] MEDS ORDERED: ALBUTEROL/IPRATROPIUM 3 ML NEB RESP TX PRN (17:08)
[2017-04-21] MEDS: MONTELUKAST 10 MG TABLET PO SCH (18:17)
[2017-04-21] MEDS: ZALEPLON 5 MG CAPSULE PO PRN (21:57)
[2017-04-21] MEDS: SIMVASTATIN 40 MG TABLET PO SCH (21:59)
[2017-04-22] MEDS: ALBUTEROL/IPRATROPIUM 3 ML NEB RESP TX SCH ×5 (03:20→20:04)
[2017-04-22 05:37] LABS: Calcium 8.4 MG/DL (8.5-10.1); Magnesium 2.8 MG/DL (1.8-2.4); Potassium 4.9 MMOL/L (3.5-5.1)
[2017-04-22] MEDS ORDERED: VANCOMYCIN 500 MG VIAL IRRIG ONE (08:49)
[2017-04-22] MEDS ORDERED: VANCOMYCIN INJ 1,000 MG in SODIUM CHLORIDE 0.9% 250 ML IV ONE (08:49)
[2017-04-22] MEDS ORDERED: LACTULOSE 20 GM/30 ML UDCUP PO ONE (08:51)
[2017-04-22] MEDS ORDERED: LEVOFLOXACIN 250 MG TABLET PO SCH (09:00)
[2017-04-22] MEDS: FLUTICASONE/SALMETEROL 500-50 DISKUS 14 DOSE INH SCH ×2 (09:32→21:37)
[2017-04-22] MEDS: FLUCONAZOLE 100 MG TABLET PO SCH (09:33)
[2017-04-22] MEDS: DOCUSATE SODIUM 100 MG CAPSULE PO SCH (09:33)
[2017-04-22] MEDS: LORATADINE 10 MG TABLET PO SCH (09:33)
[2017-04-22] MEDS: FERROUS SULFATE 325 MG TABLET PO SCH (09:33)
[2017-04-22] MEDS: FLUTICASONE 50 MCG NASAL SPRAY 16 GM BOTTLE BOTH NARES SCH ×2 (09:33→21:36)
[2017-04-22] MEDS: ASPIRIN CHEW 81 MG TABLET PO SCH (09:33)
[2017-04-22] MEDS: FUROSEMIDE 40 MG TABLET PO SCH (09:34)
[2017-04-22] MEDS: PANTOPRAZOLE 40 MG TABLET PO SCH (09:34)
[2017-04-22] MEDS: NYSTATIN 500,000 UNIT/5 ML UDCUP SWISH/SWAL SCH ×4 (09:34→21:38)
[2017-04-22] MEDS: CHLORHEXIDINE 0.12% ORAL RINSE 60 ML BOTTLE SWISH/SPIT SCH ×2 (09:34→21:36)
[2017-04-22] MEDS: MORPHINE 2 MG/1 ML SYRINGE IV PRN (10:54)
[2017-04-22] MEDS: ASCORBIC ACID 500 MG TABLET PO SCH (13:01)
[2017-04-22] MEDS: VITAMIN E 400 UNIT CAPSULE PO SCH (13:03)
[2017-04-22] MEDS: CHOLECALCIFEROL 400 UNIT TABLET PO SCH (13:03)
[2017-04-22] MEDS ORDERED: HEPARIN/NACL 0.9% 2 UNITS/ML 500 ML IV ONE (13:40)
[2017-04-22] MEDS ORDERED: VANCOMYCIN 500 MG VIAL ONE (13:40)
[2017-04-22] MEDS ORDERED: TISSUE ADHESIVE 1 EACH APPLICATOR TOP ONE (13:40)
[2017-04-22] MEDS ORDERED: LIDOCAINE 1% 20 ML VIAL ONE (13:40)
[2017-04-22] MEDS ORDERED: ETOMIDATE 20 MG/10 ML VIAL IV ONE ×2 (13:53→14:54)
[2017-04-22] MEDS ORDERED: PROPOFOL 200 MG/20 ML VIAL IV ONE ×2 (13:53→14:53)
[2017-04-22] MEDS ORDERED: KETOROLAC 30 MG/1 ML VIAL ONE (13:53)
[2017-04-22] MEDS ORDERED: fentaNYL 100 MCG/2 ML VIAL ONE (14:53)
[2017-04-22] MEDS ORDERED: MIDAZOLAM 2 MG/2 ML VIAL ONE (14:53)
[2017-04-22] MEDS ORDERED: LACTATED RINGERS 1,000 ML IV ONE ×2 (14:54→16:15)
[2017-04-22] MEDS ORDERED: LEVOFLOXACIN 250 MG TABLET PO ONE (15:26)
[2017-04-22] MEDS ORDERED: SODIUM CHLORIDE 0.9% 100 ML IV ONE (16:15)
[2017-04-22] MEDS: oxyCODONE/ACETAMINOPHEN 5-325 MG TABLET PO PRN (17:02)
[2017-04-22] MEDS: MONTELUKAST 10 MG TABLET PO SCH (19:28)
[2017-04-22] MEDS: SIMVASTATIN 40 MG TABLET PO SCH (21:40)
[2017-04-22] MEDS: BISACODYL 5 MG TABLET PO PRN (21:40)
[2017-04-23] MEDS: ALBUTEROL/IPRATROPIUM 3 ML NEB RESP TX SCH ×7 (00:39→23:54)
[2017-04-23] MEDS ORDERED: VANCOMYCIN INJ 1,000 MG in SODIUM CHLORIDE 0.9% 250 ML IV ONE (03:26)
[2017-04-23 06:33] LABS: Basophils # 0.1 10*3/uL (0.0-0.2); Basophils % 0.4 % (0.0-0.8); Eosinophils % 7.6 % (0.00-10.9); Hematocrit 28.9 VOL% (35.7-47.0); Immature Granulocytes % 1.2 %; Immature Granulocytes Absolute 0.16 #; Lymphocytes # 1.8 10*3/uL (1.4-4.0); Lymphocytes % 13.8 % (21.3-54.2); Mean Corpuscular HGB Conc 31.1 GM/DL (32-36); Mean Corpuscular Hemoglobin 31 PG (27-34); Mean Corpuscular Volume 98.3 FL (87-102); Mean Platelet Volume 10.8 FL (9.6-12.0); Monocytes # 1.2 10*3/uL (0.11-0.8); Monocytes % 8.8 % (1.7-12.7); Neutrophils % 68.2 % (38.7-73.9); Platelet Count 379 T/CUMM (130-400); Red Blood Count 2.94 MC/CUMM (3.8-5.5); Red Cell Distribution Width 15.7 % (9.3-17.3); White Blood Count 13.2 T/CUMM (4-12)
[2017-04-23 06:56] LABS: Calcium 8.5 MG/DL (8.5-10.1); Magnesium 2.3 MG/DL (1.8-2.4); Osmolality,Calculated 286.1 MOS/KG (273-304); Potassium 4.3 MMOL/L (3.5-5.1)
[2017-04-23 06:57] LABS: Calcium 8.4 MG/DL (8.5-10.1); Osmolality,Calculated 286.1 MOS/KG (273-304); Potassium 4.2 MMOL/L (3.5-5.1)
[2017-04-23] MEDS: FLUTICASONE/SALMETEROL 500-50 DISKUS 14 DOSE INH SCH ×2 (09:09→21:17)
[2017-04-23] MEDS: DOCUSATE SODIUM 100 MG CAPSULE PO SCH (09:09)
[2017-04-23] MEDS: LEVOFLOXACIN 500 MG TABLET PO SCH (09:09)
[2017-04-23] MEDS: LORATADINE 10 MG TABLET PO SCH (09:09)
[2017-04-23] MEDS: FERROUS SULFATE 325 MG TABLET PO SCH (09:09)
[2017-04-23] MEDS: FUROSEMIDE 40 MG TABLET PO SCH (09:09)
[2017-04-23] MEDS: PANTOPRAZOLE 40 MG TABLET PO SCH (09:09)
[2017-04-23] MEDS: ASPIRIN CHEW 81 MG TABLET PO SCH (09:09)
[2017-04-23] MEDS: FLUCONAZOLE 100 MG TABLET PO SCH (09:09)
[2017-04-23] MEDS: FLUTICASONE 50 MCG NASAL SPRAY 16 GM BOTTLE BOTH NARES SCH ×2 (09:10→21:18)
[2017-04-23] MEDS: CHLORHEXIDINE 0.12% ORAL RINSE 60 ML BOTTLE SWISH/SPIT SCH ×2 (09:10→21:20)
[2017-04-23] MEDS: NYSTATIN 500,000 UNIT/5 ML UDCUP SWISH/SWAL SCH ×4 (09:10→21:19)
[2017-04-23] MEDS: METOPROLOL SUCCINATE XL 25 MG TABLET PO SCH (10:08)
[2017-04-23] MEDS: GABAPENTIN 300 MG CAPSULE PO PRN (10:08)
[2017-04-23] MEDS: CHOLECALCIFEROL 400 UNIT TABLET PO SCH (12:27)
[2017-04-23] MEDS: ASCORBIC ACID 500 MG TABLET PO SCH (12:27)
[2017-04-23] MEDS: VITAMIN E 400 UNIT CAPSULE PO SCH (12:27)
[2017-04-23] MEDS: oxyCODONE/ACETAMINOPHEN 5-325 MG TABLET PO PRN (14:57)
[2017-04-23] MEDS: tiZANidine 4 MG TABLET PO PRN (15:03)
[2017-04-23] MEDS: MORPHINE 2 MG/1 ML SYRINGE IV PRN ×2 (15:57→21:57)
[2017-04-23] MEDS: BISACODYL 5 MG TABLET PO PRN (16:24)
[2017-04-23] MEDS: SIMVASTATIN 40 MG TABLET PO SCH (21:20)
[2017-04-23] MEDS: MONTELUKAST 10 MG TABLET PO SCH (21:20)
[2017-04-24] MEDS: tiZANidine 4 MG TABLET PO PRN ×3 (00:26→21:51)
[2017-04-24] MEDS: ZALEPLON 5 MG CAPSULE PO PRN ×2 (00:26→21:51)
[2017-04-24] MEDS: ALBUTEROL/IPRATROPIUM 3 ML NEB RESP TX SCH ×5 (04:14→19:37)
[2017-04-24 05:56] LABS: Basophils # 0.1 10*3/uL (0.0-0.2); Basophils % 0.5 % (0.0-0.8); Eosinophils # 1.2 10*3/uL (0.0-0.87); Eosinophils % 7.8 % (0.00-10.9); Hematocrit 27.7 VOL% (35.7-47.0); Hemoglobin 8.8 GM/DL (12.0-16.0); Immature Granulocytes % 0.9 %; Immature Granulocytes Absolute 0.14 #; Lymphocytes # 2.6 10*3/uL (1.4-4.0); Lymphocytes % 16.8 % (21.3-54.2); Mean Corpuscular HGB Conc 31.8 GM/DL (32-36); Mean Corpuscular Hemoglobin 31 PG (27-34); Mean Corpuscular Volume 96.2 FL (87-102); Mean Platelet Volume 10.3 FL (9.6-12.0); Monocytes # 1.1 10*3/uL (0.11-0.8); Monocytes % 7.2 % (1.7-12.7); Neutrophils # 10.2 10*3/uL (1.4-7.4); Neutrophils % 66.8 % (38.7-73.9); Platelet Count 387 T/CUMM (130-400); Red Blood Count 2.88 MC/CUMM (3.8-5.5); Red Cell Distribution Width 15.7 % (9.3-17.3); White Blood Count 15.3 T/CUMM (4-12)
[2017-04-24] MEDS: GABAPENTIN 300 MG CAPSULE PO PRN (05:59)
[2017-04-24 06:21] LABS: Calcium 8.4 MG/DL (8.5-10.1); Magnesium 2.5 MG/DL (1.8-2.4); Osmolality,Calculated 276.7 MOS/KG (273-304); Potassium 4.3 MMOL/L (3.5-5.1)
[2017-04-24] MEDS ORDERED: METOPROLOL SUCCINATE XL 50 MG TABLET PO SCH (09:34)
[2017-04-24] MEDS: ASPIRIN CHEW 81 MG TABLET PO SCH (09:40)
[2017-04-24] MEDS: PANTOPRAZOLE 40 MG TABLET PO SCH (09:40)
[2017-04-24] MEDS: FUROSEMIDE 40 MG TABLET PO SCH (09:40)
[2017-04-24] MEDS: FLUCONAZOLE 100 MG TABLET PO SCH (09:40)
[2017-04-24] MEDS: LEVOFLOXACIN 500 MG TABLET PO SCH (09:40)
[2017-04-24] MEDS: LORATADINE 10 MG TABLET PO SCH (09:40)
[2017-04-24] MEDS: DOCUSATE SODIUM 100 MG CAPSULE PO SCH (09:41)
[2017-04-24] MEDS: METOPROLOL SUCCINATE XL 25 MG TABLET PO SCH (09:41)
[2017-04-24] MEDS: FLUTICASONE/SALMETEROL 500-50 DISKUS 14 DOSE INH SCH ×2 (09:41→21:49)
[2017-04-24] MEDS: FERROUS SULFATE 325 MG TABLET PO SCH (09:41)
[2017-04-24] MEDS: NYSTATIN 500,000 UNIT/5 ML UDCUP SWISH/SWAL SCH ×4 (09:42→21:51)
[2017-04-24] MEDS: FLUTICASONE 50 MCG NASAL SPRAY 16 GM BOTTLE BOTH NARES SCH ×2 (09:42→21:50)
[2017-04-24] MEDS: oxyCODONE/ACETAMINOPHEN 5-325 MG TABLET PO PRN (09:47)
[2017-04-24] MEDS: CHLORHEXIDINE 0.12% ORAL RINSE 60 ML BOTTLE SWISH/SPIT SCH ×2 (10:00→21:55)
[2017-04-24] MEDS: ASCORBIC ACID 500 MG TABLET PO SCH (11:52)
[2017-04-24] MEDS: VITAMIN E 400 UNIT CAPSULE PO SCH (11:52)
[2017-04-24] MEDS: CHOLECALCIFEROL 400 UNIT TABLET PO SCH (11:53)
[2017-04-24] MEDS: MORPHINE 2 MG/1 ML SYRINGE IV PRN (12:00)
[2017-04-24] MEDS: MORPHINE ER 15 MG TABLET PO SCH ×2 (16:08→21:51)
[2017-04-24] MEDS: MONTELUKAST 10 MG TABLET PO SCH (18:21)
[2017-04-24] MEDS: SIMVASTATIN 40 MG TABLET PO SCH (21:51)
[2017-04-25] MEDS: ALBUTEROL/IPRATROPIUM 3 ML NEB RESP TX SCH ×5 (00:13→15:40)
[2017-04-25 05:39] LABS: Basophils # 0.1 10*3/uL (0.0-0.2); Basophils % 0.5 % (0.0-0.8); Eosinophils # 1.3 10*3/uL (0.0-0.87); Eosinophils % 8.8 % (0.00-10.9); Hematocrit 26.7 VOL% (35.7-47.0); Hemoglobin 8.4 GM/DL (12.0-16.0); Immature Granulocytes % 1.2 %; Immature Granulocytes Absolute 0.18 #; Lymphocytes # 2.3 10*3/uL (1.4-4.0); Lymphocytes % 15.1 % (21.3-54.2); Mean Corpuscular HGB Conc 31.5 GM/DL (32-36); Mean Corpuscular Hemoglobin 31 PG (27-34); Mean Corpuscular Volume 97.8 FL (87-102); Mean Platelet Volume 10.2 FL (9.6-12.0); Monocytes # 1.2 10*3/uL (0.11-0.8); Monocytes % 7.6 % (1.7-12.7); Neutrophils # 10.2 10*3/uL (1.4-7.4); Neutrophils % 66.8 % (38.7-73.9); Platelet Count 329 T/CUMM (130-400); Red Blood Count 2.73 MC/CUMM (3.8-5.5); Red Cell Distribution Width 15.7 % (9.3-17.3); White Blood Count 15.2 T/CUMM (4-12)
[2017-04-25 06:06] LABS: Calcium 8.4 MG/DL (8.5-10.1); Magnesium 2.2 MG/DL (1.8-2.4); Osmolality,Calculated 279.4 MOS/KG (273-304); Potassium 4.3 MMOL/L (3.5-5.1)
[2017-04-25] MEDS: LORATADINE 10 MG TABLET PO SCH (08:43)
[2017-04-25] MEDS: FERROUS SULFATE 325 MG TABLET PO SCH (08:43)
[2017-04-25] MEDS: LEVOFLOXACIN 500 MG TABLET PO SCH (08:43)
[2017-04-25] MEDS: ASPIRIN CHEW 81 MG TABLET PO SCH (08:43)
[2017-04-25] MEDS: PANTOPRAZOLE 40 MG TABLET PO SCH (08:43)
[2017-04-25] MEDS: FUROSEMIDE 40 MG TABLET PO SCH (08:43)
[2017-04-25] MEDS: GABAPENTIN 300 MG CAPSULE PO PRN (08:43)
[2017-04-25] MEDS: FLUCONAZOLE 100 MG TABLET PO SCH (08:43)
[2017-04-25] MEDS: tiZANidine 4 MG TABLET PO PRN (08:43)
[2017-04-25] MEDS: MORPHINE ER 15 MG TABLET PO SCH (08:43)
[2017-04-25] MEDS: NYSTATIN 500,000 UNIT/5 ML UDCUP SWISH/SWAL SCH ×2 (08:44→12:31)
[2017-04-25] MEDS: FLUTICASONE/SALMETEROL 500-50 DISKUS 14 DOSE INH SCH (08:44)
[2017-04-25] MEDS: DOCUSATE SODIUM 100 MG CAPSULE PO SCH (08:44)
[2017-04-25] MEDS: FLUTICASONE 50 MCG NASAL SPRAY 16 GM BOTTLE BOTH NARES SCH (08:44)
[2017-04-25] MEDS: CHLORHEXIDINE 0.12% ORAL RINSE 60 ML BOTTLE SWISH/SPIT SCH (08:44)
[2017-04-25] MEDS: BISACODYL 5 MG TABLET PO PRN (09:04)
[2017-04-25] MEDS: ASCORBIC ACID 500 MG TABLET PO SCH (12:31)
[2017-04-25] MEDS: VITAMIN E 400 UNIT CAPSULE PO SCH (12:31)
[2017-04-25] MEDS: CHOLECALCIFEROL 400 UNIT TABLET PO SCH (12:31)
[2017-04-25] MEDS: oxyCODONE/ACETAMINOPHEN 5-325 MG TABLET PO PRN (12:32)
[2017-04-25 16:45] VITALS: BP 116/57
[2017-04-25] MEDS ORDERED: LISINOPRIL 5 MG TABLET PO SCH (21:00)
== END 2017-04-25 16:00 | disposition swing bed (61) | DRG 216 ==
LOC: N.ED 12:24 → N.EDINP 12:24 → SUATTDRO 14:48 → N.TELES 16:20 → N.CVR 04-11 12:01 → N.ICU 04-12 18:54 → N.TELES 04-15 10:19
PROVIDERS: ADMIT Internal Medicine; ATTEND Hospitalist
PROC: CLCCHCL (ICD-10-PCS; 2017-04-05 15:15)
PROC: CABGAVR (ICD-10-PCS; 2017-04-11 06:46)

== ENCOUNTER 2018-03-01 17:50 | Inpatient (IN) ==
[2018-03-01] MEDS ORDERED: MORPHINE 4 MG/1 ML VIAL IV STA (20:09)
[2018-03-01] MEDS ORDERED: ONDANSETRON 4 MG/2 ML VIAL IV STA (20:10)
[2018-03-01] MEDS ORDERED: ONDANSETRON 4 MG/2 ML VIAL IV PRN (20:48)
[2018-03-01] MEDS ORDERED: ACETAMINOPHEN 325 MG TABLET PO PRN (20:48)
[2018-03-01 20:50] LABS: Apearance,Urine CLEAR (Clear); Bilirubin,Urine Negative (Negative); Blood, Urine Negative (Negative); Glucose,Urine (UA) Negative (Negative); Ketones,Urine Negative (Negative); Nitrite,Urine Negative (Negative); Protein,Urine Negative; RBC,Urine <1 /HPF (0-4); Urine Color Straw (Yellow); Urine Specific Gravity 1.008 (1.001-1.035); Urine Urobilinogen < 2.0 EU/DL (0.2-1.0)
[2018-03-01] MEDS ORDERED: MORPHINE 4 MG/1 ML VIAL IV PRN (20:52)
[2018-03-01 21:44] LABS: Albumin 3.9 G/DL (3.4-5.0); Bilirubin,Total 0.9 MG/DL (0.2-1.0); Calcium 8.9 MG/DL (8.5-10.1); Osmolality,Calculated 293.3 MOS/KG (273-304)
[2018-03-01 22:23] LABS: Basophils % 0.2 % (0.0-0.8); Eosinophils # 0.2 10*3/uL (0.0-0.87); Eosinophils % 1.5 % (0.00-10.9); Hematocrit 39.1 VOL% (35.7-47.0); Hemoglobin 12.7 GM/DL (12.0-16.0); Immature Granulocytes % 0.3 %; Immature Granulocytes Absolute 0.04 #; Lymphocytes # 1.8 10*3/uL (1.4-4.0); Lymphocytes % 14.3 % (21.3-54.2); Mean Corpuscular HGB Conc 32.5 GM/DL (32-36); Mean Corpuscular Hemoglobin 32 PG (27-34); Mean Corpuscular Volume 99.7 FL (87-102); Mean Platelet Volume 11.7 FL (9.6-12.0); Monocytes # 1.1 10*3/uL (0.11-0.8); Monocytes % 8.7 % (1.7-12.7); Neutrophils # 9.2 10*3/uL (1.4-7.4); Platelet Count 228 T/CUMM (130-400); Red Blood Count 3.92 MC/CUMM (3.8-5.5); Red Cell Distribution Width 12.9 % (9.3-17.3); White Blood Count 12.3 T/CUMM (4-12)
[2018-03-01] MEDS: GABAPENTIN 300 MG CAPSULE PO SCH (23:40)
[2018-03-02] MEDS ORDERED: MORPHINE 4 MG/1 ML VIAL IM PRN (02:17)
[2018-03-02] MEDS: LEVOTHYROXINE 200 MCG TABLET PO SCH ×2 (07:21→09:32)
[2018-03-02 08:54] LABS: Basophils % 0.3 % (0.0-0.8); Eosinophils # 0.1 10*3/uL (0.0-0.87); Eosinophils % 1.2 % (0.00-10.9); Hematocrit 39.8 VOL% (35.7-47.0); Hemoglobin 12.8 GM/DL (12.0-16.0); Immature Granulocytes % 0.4 %; Immature Granulocytes Absolute 0.05 #; Lymphocytes % 17.2 % (21.3-54.2); Mean Corpuscular HGB Conc 32.2 GM/DL (32-36); Mean Corpuscular Hemoglobin 32 PG (27-34); Mean Corpuscular Volume 100.5 FL (87-102); Mean Platelet Volume 10.6 FL (9.6-12.0); Monocytes # 0.8 10*3/uL (0.11-0.8); Monocytes % 6.9 % (1.7-12.7); Neutrophils # 8.7 10*3/uL (1.4-7.4); Platelet Count 214 T/CUMM (130-400); Red Blood Count 3.96 MC/CUMM (3.8-5.5); Red Cell Distribution Width 12.7 % (9.3-17.3); White Blood Count 11.7 T/CUMM (4-12)
[2018-03-02] MEDS: FLUTICASONE/SALMETEROL 500-50 DISKUS 14 DOSE INH SCH ×2 (09:30→20:18)
[2018-03-02] MEDS: FLUTICASONE 50 MCG NASAL SPRAY 16 GM BOTTLE BOTH NARES SCH (09:31)
[2018-03-02] MEDS: GABAPENTIN 300 MG CAPSULE PO SCH ×2 (09:32→20:18)
[2018-03-02] MEDS: PANTOPRAZOLE 40 MG TABLET PO SCH (09:32)
[2018-03-02] MEDS: LOSARTAN 50 MG TABLET PO SCH (09:33)
[2018-03-02] MEDS: FERROUS SULFATE 325 MG TABLET PO SCH (09:33)
[2018-03-02] MEDS: ESCITALOPRAM 10 MG TABLET PO SCH (09:33)
[2018-03-02] MEDS: ENOXAPARIN 40 MG/0.4 ML SYRINGE SUBCUT SCH (09:34)
[2018-03-02] MEDS: MORPHINE 4 MG/1 ML VIAL IV PRN ×3 (09:39→20:16)
[2018-03-02] MEDS: CHOLECALCIFEROL 400 UNIT TABLET PO SCH (11:45)
[2018-03-02] MEDS: CELECOXIB 200 MG CAPSULE PO PRN (11:45)
[2018-03-02 11:46] LABS: Calcium 8.8 MG/DL (8.5-10.1); Osmolality,Calculated 291.1 MOS/KG (273-304); Potassium 4.4 MMOL/L (3.5-5.1)
[2018-03-02] MEDS: SIMVASTATIN 40 MG TABLET PO SCH (18:01)
[2018-03-02] MEDS: MONTELUKAST 10 MG TABLET PO SCH (20:18)
[2018-03-02] MEDS: METHOCARBAMOL 750 MG TABLET PO PRN (23:03)
[2018-03-03] MEDS: MORPHINE 4 MG/1 ML VIAL IV PRN ×4 (05:38→21:24)
[2018-03-03] MEDS: LEVOTHYROXINE 200 MCG TABLET PO SCH (05:38)
[2018-03-03 05:58] LABS: Basophils # 0.1 10*3/uL (0.0-0.2); Basophils % 0.6 % (0.0-0.8); Eosinophils # 0.2 10*3/uL (0.0-0.87); Eosinophils % 2.3 % (0.00-10.9); Hematocrit 39.1 VOL% (35.7-47.0); Hemoglobin 12.3 GM/DL (12.0-16.0); Immature Granulocytes % 0.4 %; Immature Granulocytes Absolute 0.04 #; Lymphocytes # 2.3 10*3/uL (1.4-4.0); Lymphocytes % 23.3 % (21.3-54.2); Mean Corpuscular HGB Conc 31.5 GM/DL (32-36); Mean Corpuscular Hemoglobin 32 PG (27-34); Mean Platelet Volume 10.5 FL (9.6-12.0); Monocytes # 0.9 10*3/uL (0.11-0.8); Monocytes % 8.8 % (1.7-12.7); Neutrophils # 6.2 10*3/uL (1.4-7.4); Neutrophils % 64.6 % (38.7-73.9); Platelet Count 206 T/CUMM (130-400); Red Blood Count 3.87 MC/CUMM (3.8-5.5); Red Cell Distribution Width 12.8 % (9.3-17.3); White Blood Count 9.6 T/CUMM (4-12)
[2018-03-03 06:21] LABS: Osmolality,Calculated 288.1 MOS/KG (273-304); Potassium 4.6 MMOL/L (3.5-5.1)
[2018-03-03] MEDS: FLUTICASONE 50 MCG NASAL SPRAY 16 GM BOTTLE BOTH NARES SCH (08:35)
[2018-03-03] MEDS: ENOXAPARIN 40 MG/0.4 ML SYRINGE SUBCUT SCH (08:35)
[2018-03-03] MEDS: FLUTICASONE/SALMETEROL 500-50 DISKUS 14 DOSE INH SCH ×2 (08:35→20:09)
[2018-03-03] MEDS: POLYETHYLENE GLYCOL POWDER 17 GM PACK PO SCH (08:36)
[2018-03-03] MEDS: ESCITALOPRAM 10 MG TABLET PO SCH (08:36)
[2018-03-03] MEDS: GABAPENTIN 300 MG CAPSULE PO SCH ×2 (08:36→20:09)
[2018-03-03] MEDS: LOSARTAN 50 MG TABLET PO SCH (08:36)
[2018-03-03] MEDS: PANTOPRAZOLE 40 MG TABLET PO SCH (08:36)
[2018-03-03] MEDS: FERROUS SULFATE 325 MG TABLET PO SCH (08:37)
[2018-03-03] MEDS: ASPIRIN EC 81 MG TABLET PO SCH (08:37)
[2018-03-03] MEDS: METHOCARBAMOL 750 MG TABLET PO PRN ×3 (08:37→20:10)
[2018-03-03] MEDS: CHOLECALCIFEROL 400 UNIT TABLET PO SCH (12:00)
[2018-03-03] MEDS: SIMVASTATIN 40 MG TABLET PO SCH (18:15)
[2018-03-03] MEDS: MONTELUKAST 10 MG TABLET PO SCH (20:10)
[2018-03-04] MEDS: METHOCARBAMOL 750 MG TABLET PO PRN ×3 (01:04→20:03)
[2018-03-04] MEDS: MORPHINE 4 MG/1 ML VIAL IV PRN ×3 (01:04→21:34)
[2018-03-04 06:08] LABS: Basophils # 0.1 10*3/uL (0.0-0.2); Basophils % 0.6 % (0.0-0.8); Eosinophils # 0.3 10*3/uL (0.0-0.87); Eosinophils % 2.4 % (0.00-10.9); Immature Granulocytes % 0.3 %; Immature Granulocytes Absolute 0.03 #; Lymphocytes # 2.9 10*3/uL (1.4-4.0); Mean Corpuscular HGB Conc 32.4 GM/DL (32-36); Mean Corpuscular Hemoglobin 32 PG (27-34); Mean Corpuscular Volume 98.4 FL (87-102); Mean Platelet Volume 11.1 FL (9.6-12.0); Monocytes # 0.9 10*3/uL (0.11-0.8); Monocytes % 8.8 % (1.7-12.7); Neutrophils # 6.5 10*3/uL (1.4-7.4); Neutrophils % 60.9 % (38.7-73.9); Platelet Count 214 T/CUMM (130-400); Red Blood Count 3.76 MC/CUMM (3.8-5.5); Red Cell Distribution Width 12.8 % (9.3-17.3); White Blood Count 10.6 T/CUMM (4-12)
[2018-03-04] MEDS: LEVOTHYROXINE 200 MCG TABLET PO SCH (06:10)
[2018-03-04 06:24] LABS: Calcium 8.8 MG/DL (8.5-10.1); Osmolality,Calculated 290.8 MOS/KG (273-304); Potassium 4.2 MMOL/L (3.5-5.1)
[2018-03-04] MEDS: FLUTICASONE/SALMETEROL 500-50 DISKUS 14 DOSE INH SCH ×2 (09:06→20:04)
[2018-03-04] MEDS: FLUTICASONE 50 MCG NASAL SPRAY 16 GM BOTTLE BOTH NARES SCH (09:07)
[2018-03-04] MEDS: ASPIRIN EC 81 MG TABLET PO SCH (09:08)
[2018-03-04] MEDS: LOSARTAN 50 MG TABLET PO SCH (09:09)
[2018-03-04] MEDS: ESCITALOPRAM 10 MG TABLET PO SCH (09:10)
[2018-03-04] MEDS: FERROUS SULFATE 325 MG TABLET PO SCH (09:10)
[2018-03-04] MEDS: PANTOPRAZOLE 40 MG TABLET PO SCH (09:11)
[2018-03-04] MEDS: GABAPENTIN 300 MG CAPSULE PO SCH ×2 (09:11→20:03)
[2018-03-04] MEDS: POLYETHYLENE GLYCOL POWDER 17 GM PACK PO SCH (09:18)
[2018-03-04] MEDS: ENOXAPARIN 40 MG/0.4 ML SYRINGE SUBCUT SCH (09:22)
[2018-03-04] MEDS: CHOLECALCIFEROL 400 UNIT TABLET PO SCH (12:59)
[2018-03-04] MEDS: SIMVASTATIN 40 MG TABLET PO SCH (20:03)
[2018-03-04] MEDS: MONTELUKAST 10 MG TABLET PO SCH (20:05)
[2018-03-05] MEDS: MORPHINE 4 MG/1 ML VIAL IV PRN ×4 (00:50→21:09)
[2018-03-05] MEDS: METHOCARBAMOL 750 MG TABLET PO PRN ×3 (02:30→21:07)
[2018-03-05] MEDS: LEVOTHYROXINE 200 MCG TABLET PO SCH (06:11)
[2018-03-05] MEDS: ASPIRIN EC 81 MG TABLET PO SCH (08:52)
[2018-03-05] MEDS: FERROUS SULFATE 325 MG TABLET PO SCH (08:52)
[2018-03-05] MEDS: LOSARTAN 50 MG TABLET PO SCH (08:52)
[2018-03-05] MEDS: ESCITALOPRAM 10 MG TABLET PO SCH (08:53)
[2018-03-05] MEDS: ENOXAPARIN 40 MG/0.4 ML SYRINGE SUBCUT SCH (08:53)
[2018-03-05] MEDS: GABAPENTIN 300 MG CAPSULE PO SCH ×2 (08:54→21:07)
[2018-03-05] MEDS: PANTOPRAZOLE 40 MG TABLET PO SCH (08:54)
[2018-03-05] MEDS: POLYETHYLENE GLYCOL POWDER 17 GM PACK PO SCH (08:54)
[2018-03-05] MEDS: FLUTICASONE/SALMETEROL 500-50 DISKUS 14 DOSE INH SCH ×2 (09:01→21:14)
[2018-03-05] MEDS: FLUTICASONE 50 MCG NASAL SPRAY 16 GM BOTTLE BOTH NARES SCH (09:01)
[2018-03-05] MEDS: CHOLECALCIFEROL 400 UNIT TABLET PO SCH (12:02)
[2018-03-05] MEDS: SIMVASTATIN 40 MG TABLET PO SCH (18:57)
[2018-03-05] MEDS: MONTELUKAST 10 MG TABLET PO SCH (21:07)
[2018-03-06] MEDS: IBUPROFEN 200 MG TABLET PO PRN (00:09)
[2018-03-06] MEDS: MORPHINE 4 MG/1 ML VIAL IV PRN ×4 (01:44→20:00)
[2018-03-06] MEDS: LEVOTHYROXINE 200 MCG TABLET PO SCH (05:35)
[2018-03-06] MEDS: CELECOXIB 200 MG CAPSULE PO PRN (05:38)
[2018-03-06] MEDS: METHOCARBAMOL 750 MG TABLET PO PRN ×3 (07:27→20:00)
[2018-03-06] MEDS: LOSARTAN 50 MG TABLET PO SCH (08:50)
[2018-03-06] MEDS: ASPIRIN EC 81 MG TABLET PO SCH (08:50)
[2018-03-06] MEDS: FLUTICASONE 50 MCG NASAL SPRAY 16 GM BOTTLE BOTH NARES SCH (08:50)
[2018-03-06] MEDS: FLUTICASONE/SALMETEROL 500-50 DISKUS 14 DOSE INH SCH ×2 (08:50→20:00)
[2018-03-06] MEDS: FERROUS SULFATE 325 MG TABLET PO SCH (08:50)
[2018-03-06] MEDS: ESCITALOPRAM 10 MG TABLET PO SCH (08:51)
[2018-03-06] MEDS: ENOXAPARIN 40 MG/0.4 ML SYRINGE SUBCUT SCH (08:51)
[2018-03-06] MEDS: GABAPENTIN 300 MG CAPSULE PO SCH ×2 (08:52→20:00)
[2018-03-06] MEDS: POLYETHYLENE GLYCOL POWDER 17 GM PACK PO SCH (08:52)
[2018-03-06] MEDS: PANTOPRAZOLE 40 MG TABLET PO SCH (08:53)
[2018-03-06] MEDS: CHOLECALCIFEROL 400 UNIT TABLET PO SCH (12:48)
[2018-03-06] MEDS: SIMVASTATIN 40 MG TABLET PO SCH (19:04)
[2018-03-06] MEDS: MONTELUKAST 10 MG TABLET PO SCH (20:00)
[2018-03-07] MEDS: MORPHINE 4 MG/1 ML VIAL IV PRN (05:30)
[2018-03-07] MEDS: LEVOTHYROXINE 200 MCG TABLET PO SCH (05:33)
[2018-03-07 05:57] LABS: Basophils # 0.1 10*3/uL (0.0-0.2); Basophils % 0.6 % (0.0-0.8); Eosinophils # 0.3 10*3/uL (0.0-0.87); Hemoglobin 11.8 GM/DL (12.0-16.0); Immature Granulocytes % 0.5 %; Immature Granulocytes Absolute 0.05 #; Lymphocytes # 2.4 10*3/uL (1.4-4.0); Lymphocytes % 24.8 % (21.3-54.2); Mean Corpuscular HGB Conc 32.8 GM/DL (32-36); Mean Corpuscular Hemoglobin 32 PG (27-34); Mean Corpuscular Volume 98.1 FL (87-102); Mean Platelet Volume 11.3 FL (9.6-12.0); Monocytes # 0.9 10*3/uL (0.11-0.8); Neutrophils # 5.9 10*3/uL (1.4-7.4); Neutrophils % 62.1 % (38.7-73.9); Platelet Count 227 T/CUMM (130-400); Red Blood Count 3.67 MC/CUMM (3.8-5.5); Red Cell Distribution Width 12.7 % (9.3-17.3); White Blood Count 9.6 T/CUMM (4-12)
[2018-03-07 06:04] LABS: Calcium 9.1 MG/DL (8.5-10.1); Potassium 4.4 MMOL/L (3.5-5.1)
[2018-03-07] MEDS: ASPIRIN EC 81 MG TABLET PO SCH (08:47)
[2018-03-07] MEDS: ENOXAPARIN 40 MG/0.4 ML SYRINGE SUBCUT SCH (08:47)
[2018-03-07] MEDS: PANTOPRAZOLE 40 MG TABLET PO SCH (08:47)
[2018-03-07] MEDS: LOSARTAN 50 MG TABLET PO SCH (08:47)
[2018-03-07] MEDS: FERROUS SULFATE 325 MG TABLET PO SCH (08:47)
[2018-03-07] MEDS: GABAPENTIN 300 MG CAPSULE PO SCH (08:48)
[2018-03-07] MEDS: FLUTICASONE 50 MCG NASAL SPRAY 16 GM BOTTLE BOTH NARES SCH (08:48)
[2018-03-07] MEDS: ESCITALOPRAM 10 MG TABLET PO SCH (08:48)
[2018-03-07] MEDS: FLUTICASONE/SALMETEROL 500-50 DISKUS 14 DOSE INH SCH (08:49)
[2018-03-07] MEDS: POLYETHYLENE GLYCOL POWDER 17 GM PACK PO SCH (08:50)
[2018-03-07 11:35] VITALS: BP 112/62
[2018-03-07] MEDS: CHOLECALCIFEROL 400 UNIT TABLET PO SCH (12:01)
[2018-03-07] MEDS: IBUPROFEN 200 MG TABLET PO PRN (12:50)
[2018-03-30] MEDS ORDERED: CYANOCOBALAMIN 1000 MCG/1 ML VIAL IM SCH (09:00)
== END 2018-03-07 13:30 | disposition swing bed (61) | DRG 563 ==
LOC: EDUNIT# → EDBD → N.ED 17:50 → N.EDINP 20:48 → SUATTDRO 20:48 → N.3E 22:37
PROVIDERS: ADMIT Internal Medicine; ATTEND Hospitalist

== ENCOUNTER 2022-07-17 10:51 | Observation (INO) ==
[2022-07-17] MEDS ORDERED: SODIUM CHLORIDE 0.9% 1,000 ML IV STA (11:42)
[2022-07-17 12:00] LABS: Basophils % 0.4 % (0.0-0.8); Eosinophils # 0.1 10*3/uL (0.0-0.87); Eosinophils % 1.6 % (0.00-10.9); Hematocrit 40.4 VOL% (35.7-47.0); Hemoglobin 12.9 GM/DL (12.0-16.0); Immature Granulocytes % 0.4 %; Immature Granulocytes Absolute 0.03 #; Lymphocytes # 1.4 10*3/uL (1.4-4.0); Lymphocytes % 18.4 % (21.3-54.2); Mean Corpuscular HGB Conc 31.9 GM/DL (32-36); Mean Corpuscular Volume 101.8 FL (87-102); Mean Platelet Volume 10.8 FL (9.6-12.0); Monocytes # 0.7 10*3/uL (0.11-0.8); Monocytes % 8.8 % (1.7-12.7); Neutrophils % 70.4 % (38.7-73.9); Platelet Count 208 T/CUMM (130-400); Red Blood Count 3.97 MC/CUMM (3.8-5.5); Red Cell Distribution Width 13.2 % (9.3-17.3); White Blood Count 7.5 T/CUMM (4-12)
[2022-07-17 12:10] LABS: INR 0.9; Partial Thromboplastin Time 25.2 SECS (23.7-32.9)
[2022-07-17 12:23] LABS: Alanine Aminotransferase 27 U/L (13-56); Albumin 3.7 G/DL (3.4-5.0); Alkaline Phosphatase 110 U/L (45-117); Aspartate Amino Transferase 34 U/L (0-37); Bilirubin,Total < 0.39 MG/DL (0.20-1.00); Blood Urea Nitrogen 21 MG/DL (7-18); Carbon Dioxide 25 MMOL/L (21-32); Chloride 105 MMOL/L (98-107); Glucose 113 MG/DL (74-106); Osmolality,Calculated 271.2 MOS/KG (273-304); Potassium 5.1 MMOL/L (3.5-5.1); Sodium 134 MMOL/L (136-145); Total Protein 6.5 G/DL (6.4-8.2)
[2022-07-17 12:24] LABS: Band Neutrophils 2 % (0-10); Eosinophils 2 % (0-10); Lymphocytes 19 % (20-55); Macrocytosis 1+; Platelet Estimate Adequate; Total Cells Counted 100
[2022-07-17 12:32] LABS: Barbiturates Screen,Urine Negative (Negative); Benzodiazepines Screen,Urine Negative (Negative); Cannabinoid Screen,Urine Negative (Negative); Opiate Screen,Urine Positive (Negative); Phencyclidine Screen,Urine Negative (Negative)
[2022-07-17 12:39] LABS: Bacteria,Urine Occasional /HPF (Few); Mucus,Urine Occasional /LPF (Occasional); RBC,Urine 7 /HPF (0-4)
[2022-07-17 12:41] LABS: Bilirubin,Urine Negative (Negative); Blood, Urine Moderate mg/dL (Negative); Glucose,Urine (UA) Negative (Negative); Ketones,Urine Negative (Negative); Nitrite,Urine Negative (Negative); Protein,Urine Negative (Negative); Urine Appearance Clear (Clear); Urine Color Yellow (Yellow); Urine Urobilinogen 0.2 eU/dL (<2.0); Urine pH 5.5 (4.5-8.0)
[2022-07-17] MEDS ORDERED: NALOXONE 0.4 MG/ML VIAL IV STA (12:50)
[2022-07-17] MEDS ORDERED: NALOXONE 0.4 MG/ML VIAL ONE (12:51)
[2022-07-17] MEDS ORDERED: ONDANSETRON 4 MG/2 ML VIAL IV PRN (13:19)
[2022-07-17] MEDS ORDERED: ASPIRIN 300 MG SUPP RECTAL STA (13:38)
[2022-07-17] MEDS: HEPARIN 5,000 UNIT/1 ML VIAL SUBCUT SCH (14:55)
[2022-07-17] MEDS: SODIUM CHLORIDE 0.9% 1,000 ML IV SCH (21:55)
[2022-07-18] MEDS: HEPARIN 5,000 UNIT/1 ML VIAL SUBCUT SCH ×2 (01:47→13:36)
[2022-07-18 06:10] LABS: Albumin 3.1 G/DL (3.4-5.0); Bilirubin,Total 0.4 MG/DL (0.20-1.00); Calcium 8.8 MG/DL (8.5-10.1); Osmolality,Calculated 282.3 MOS/KG (273-304); Risk Ratio 2.36; Total Protein 6.2 G/DL (6.4-8.2); VLDL Cholesterol 16.6 MG/DL
[2022-07-18] MEDS ORDERED: tiZANidine 4 MG TABLET PO PRN (11:40)
[2022-07-18] MEDS ORDERED: CELECOXIB 200 MG CAPSULE PO PRN (11:40)
[2022-07-18] MEDS ORDERED: LACTOBACILLUS RHAMNOSUS GG PO SCH (11:45)
[2022-07-18] MEDS ORDERED: CYANOCOBALAMIN 1000 MCG/1 ML VIAL IM SCH (12:00)
[2022-07-18] MEDS: ASPIRIN 300 MG SUPP RECTAL SCH (12:16)
[2022-07-18] MEDS: ESCITALOPRAM 10 MG TABLET PO SCH (12:30)
[2022-07-18] MEDS: FERROUS SULFATE 325 MG TABLET PO SCH (12:30)
[2022-07-18] MEDS: ASCORBIC ACID 500 MG TABLET PO SCH (12:30)
[2022-07-18] MEDS: ASPIRIN EC 81 MG TABLET PO SCH (12:30)
[2022-07-18] MEDS: GABAPENTIN 300 MG CAPSULE PO SCH ×2 (12:30→20:45)
[2022-07-18] MEDS: LORATADINE 10 MG TABLET PO SCH (12:31)
[2022-07-18] MEDS: LOSARTAN 50 MG TABLET PO SCH (12:31)
[2022-07-18] MEDS: CLOPIDOGREL 75 MG TABLET PO SCH (12:31)
[2022-07-18] MEDS: FLUTICASONE 50 MCG NASAL SPRAY 16 GM BOTTLE BOTH NARES SCH (12:32)
[2022-07-18] MEDS: VITAMIN E 400 UNIT CAPSULE PO SCH (12:32)
[2022-07-18] MEDS: FLUTICASONE/SALMETEROL 500-50 DISKUS 14 DOSE INH SCH (12:32)
[2022-07-18] MEDS: SODIUM CHLORIDE 0.9% 1,000 ML IV SCH (12:32)
[2022-07-18] MEDS: valACYclovir 500 MG TABLET PO SCH ×2 (16:48→20:45)
[2022-07-18] MEDS: MONTELUKAST 10 MG TABLET PO SCH (20:45)
[2022-07-18] MEDS: SIMVASTATIN 40 MG TABLET PO SCH (20:45)
[2022-07-18] MEDS ORDERED: METHYLSULFONYLMETHANE 1000 MG PO SCH (21:00)
[2022-07-19] MEDS: HEPARIN 5,000 UNIT/1 ML VIAL SUBCUT SCH ×2 (00:53→12:55)
[2022-07-19] MEDS: SODIUM CHLORIDE 0.9% 1,000 ML IV SCH ×3 (00:53→14:06)
[2022-07-19 04:38] LABS: Basophils % 0.4 % (0.0-0.8); Eosinophils # 0.1 10*3/uL (0.0-0.87); Eosinophils % 1.2 % (0.00-10.9); Hematocrit 38.2 VOL% (35.7-47.0); Hemoglobin 12.3 GM/DL (12.0-16.0); Immature Granulocytes % 0.5 %; Immature Granulocytes Absolute 0.04 #; Lymphocytes # 2.4 10*3/uL (1.4-4.0); Lymphocytes % 29.1 % (21.3-54.2); Mean Corpuscular HGB Conc 32.2 GM/DL (32-36); Mean Corpuscular Volume 99.2 FL (87-102); Mean Platelet Volume 10.2 FL (9.6-12.0); Monocytes # 0.8 10*3/uL (0.11-0.8); Monocytes % 9.8 % (1.7-12.7); Platelet Count 228 T/CUMM (130-400); Red Blood Count 3.85 MC/CUMM (3.8-5.5); Red Cell Distribution Width 13.3 % (9.3-17.3); White Blood Count 8.1 T/CUMM (4-12)
[2022-07-19 05:14] LABS: Calcium 8.4 MG/DL (8.5-10.1); Free T4 (Free Thyroxine) 1.01 NG/DL (0.76-1.46); Osmolality,Calculated 286.8 MOS/KG (273-304); Potassium 3.6 MMOL/L (3.5-5.1); Thyroid Stimulating Hormone 1.75 uIU/ml (0.358-3.74)
[2022-07-19] MEDS: LEVOTHYROXINE 200 MCG TABLET PO SCH (06:05)
[2022-07-19] MEDS: valACYclovir 500 MG TABLET PO SCH ×3 (08:00→20:30)
[2022-07-19] MEDS: GABAPENTIN 300 MG CAPSULE PO SCH ×2 (08:01→20:29)
[2022-07-19] MEDS: LOSARTAN 50 MG TABLET PO SCH (08:01)
[2022-07-19] MEDS: CHOLECALCIFEROL 1,000 UNIT TABLET PO SCH (08:01)
[2022-07-19] MEDS: FERROUS SULFATE 325 MG TABLET PO SCH (08:01)
[2022-07-19] MEDS: LORATADINE 10 MG TABLET PO SCH (08:01)
[2022-07-19] MEDS: CALCIUM (CARBONATE)/VITAMIN D 600 MG-400 UNIT TABLET PO SCH (08:01)
[2022-07-19] MEDS: CLOPIDOGREL 75 MG TABLET PO SCH (08:01)
[2022-07-19] MEDS: ESCITALOPRAM 10 MG TABLET PO SCH (08:01)
[2022-07-19] MEDS: ASPIRIN EC 81 MG TABLET PO SCH (08:01)
[2022-07-19] MEDS: FLUTICASONE 50 MCG NASAL SPRAY 16 GM BOTTLE BOTH NARES SCH (08:05)
[2022-07-19] MEDS: FLUTICASONE/SALMETEROL 500-50 DISKUS 14 DOSE INH SCH (08:05)
[2022-07-19] MEDS: ASPIRIN 300 MG SUPP RECTAL SCH (08:11)
[2022-07-19] MEDS: ASCORBIC ACID 500 MG TABLET PO SCH (12:54)
[2022-07-19] MEDS: MORPHINE ER 15 MG TABLET PO PRN (12:54)
[2022-07-19] MEDS: VITAMIN E 400 UNIT CAPSULE PO SCH (12:54)
[2022-07-19] MEDS: SIMVASTATIN 40 MG TABLET PO SCH (18:32)
[2022-07-19] MEDS: MONTELUKAST 10 MG TABLET PO SCH (20:30)
[2022-07-20] MEDS: HEPARIN 5,000 UNIT/1 ML VIAL SUBCUT SCH ×2 (01:14→12:42)
[2022-07-20] MEDS: SODIUM CHLORIDE 0.9% 1,000 ML IV SCH ×3 (06:06→12:40)
[2022-07-20] MEDS: LEVOTHYROXINE 200 MCG TABLET PO SCH (06:07)
[2022-07-20] MEDS: CALCIUM (CARBONATE)/VITAMIN D 600 MG-400 UNIT TABLET PO SCH (09:50)
[2022-07-20] MEDS: valACYclovir 500 MG TABLET PO SCH ×3 (09:50→21:00)
[2022-07-20] MEDS: ASPIRIN EC 81 MG TABLET PO SCH (09:50)
[2022-07-20] MEDS: ESCITALOPRAM 10 MG TABLET PO SCH (09:51)
[2022-07-20] MEDS: LORATADINE 10 MG TABLET PO SCH (09:51)
[2022-07-20] MEDS: CLOPIDOGREL 75 MG TABLET PO SCH (09:51)
[2022-07-20] MEDS: LOSARTAN 50 MG TABLET PO SCH (09:51)
[2022-07-20] MEDS: FERROUS SULFATE 325 MG TABLET PO SCH (09:51)
[2022-07-20] MEDS: GABAPENTIN 300 MG CAPSULE PO SCH ×2 (09:51→21:00)
[2022-07-20] MEDS: FLUTICASONE 50 MCG NASAL SPRAY 16 GM BOTTLE BOTH NARES SCH (09:52)
[2022-07-20] MEDS: CHOLECALCIFEROL 1,000 UNIT TABLET PO SCH (09:52)
[2022-07-20] MEDS: FLUTICASONE/SALMETEROL 500-50 DISKUS 14 DOSE INH SCH (09:53)
[2022-07-20] MEDS: ASCORBIC ACID 500 MG TABLET PO SCH (11:08)
[2022-07-20] MEDS: VITAMIN E 400 UNIT CAPSULE PO SCH (11:08)
[2022-07-20] MEDS: SIMVASTATIN 40 MG TABLET PO SCH (18:10)
[2022-07-20] MEDS: MONTELUKAST 10 MG TABLET PO SCH (21:00)
[2022-07-21] MEDS: HEPARIN 5,000 UNIT/1 ML VIAL SUBCUT SCH ×2 (00:40→13:49)
[2022-07-21] MEDS: MORPHINE ER 15 MG TABLET PO PRN ×2 (00:41→23:44)
[2022-07-21] MEDS: LEVOTHYROXINE 200 MCG TABLET PO SCH (06:31)
[2022-07-21] MEDS: FLUTICASONE/SALMETEROL 500-50 DISKUS 14 DOSE INH SCH (09:18)
[2022-07-21] MEDS: FLUTICASONE 50 MCG NASAL SPRAY 16 GM BOTTLE BOTH NARES SCH (09:18)
[2022-07-21] MEDS: CHOLECALCIFEROL 1,000 UNIT TABLET PO SCH (09:22)
[2022-07-21] MEDS: valACYclovir 500 MG TABLET PO SCH ×3 (09:22→21:10)
[2022-07-21] MEDS: ASPIRIN EC 81 MG TABLET PO SCH (09:22)
[2022-07-21] MEDS: CLOPIDOGREL 75 MG TABLET PO SCH (09:23)
[2022-07-21] MEDS: GABAPENTIN 300 MG CAPSULE PO SCH ×2 (09:23→21:11)
[2022-07-21] MEDS: FERROUS SULFATE 325 MG TABLET PO SCH (09:23)
[2022-07-21] MEDS: LORATADINE 10 MG TABLET PO SCH (09:23)
[2022-07-21] MEDS: LOSARTAN 50 MG TABLET PO SCH (09:25)
[2022-07-21] MEDS: ESCITALOPRAM 10 MG TABLET PO SCH (09:27)
[2022-07-21] MEDS: CALCIUM (CARBONATE)/VITAMIN D 600 MG-400 UNIT TABLET PO SCH (09:27)
[2022-07-21] MEDS: ASCORBIC ACID 500 MG TABLET PO SCH (12:10)
[2022-07-21] MEDS: VITAMIN E 400 UNIT CAPSULE PO SCH (12:10)
[2022-07-21] MEDS: SIMVASTATIN 40 MG TABLET PO SCH (21:10)
[2022-07-21] MEDS: MONTELUKAST 10 MG TABLET PO SCH (21:11)
[2022-07-22] MEDS: HEPARIN 5,000 UNIT/1 ML VIAL SUBCUT SCH ×2 (01:25→12:31)
[2022-07-22] MEDS: LEVOTHYROXINE 200 MCG TABLET PO SCH (06:00)
[2022-07-22] MEDS: ESCITALOPRAM 10 MG TABLET PO SCH (09:30)
[2022-07-22] MEDS: LORATADINE 10 MG TABLET PO SCH (09:30)
[2022-07-22] MEDS: CLOPIDOGREL 75 MG TABLET PO SCH (09:30)
[2022-07-22] MEDS: CALCIUM (CARBONATE)/VITAMIN D 600 MG-400 UNIT TABLET PO SCH (09:30)
[2022-07-22] MEDS: FERROUS SULFATE 325 MG TABLET PO SCH (09:30)
[2022-07-22] MEDS: CHOLECALCIFEROL 1,000 UNIT TABLET PO SCH (09:30)
[2022-07-22] MEDS: valACYclovir 500 MG TABLET PO SCH ×3 (09:30→21:41)
[2022-07-22] MEDS: LOSARTAN 50 MG TABLET PO SCH (09:31)
[2022-07-22] MEDS: GABAPENTIN 300 MG CAPSULE PO SCH ×2 (09:31→21:40)
[2022-07-22] MEDS: FLUTICASONE 50 MCG NASAL SPRAY 16 GM BOTTLE BOTH NARES SCH (09:33)
[2022-07-22] MEDS: FLUTICASONE/SALMETEROL 500-50 DISKUS 14 DOSE INH SCH (09:33)
[2022-07-22] MEDS: ASPIRIN EC 81 MG TABLET PO SCH (09:35)
[2022-07-22] MEDS: VITAMIN E 400 UNIT CAPSULE PO SCH (12:30)
[2022-07-22] MEDS: ASCORBIC ACID 500 MG TABLET PO SCH (12:31)
[2022-07-22] MEDS ORDERED: ATORVASTATIN 40 MG TABLET PO SCH (21:00)
[2022-07-22] MEDS: MONTELUKAST 10 MG TABLET PO SCH (21:40)
[2022-07-23] MEDS: HEPARIN 5,000 UNIT/1 ML VIAL SUBCUT SCH (02:05)
[2022-07-23] MEDS: LEVOTHYROXINE 200 MCG TABLET PO SCH (06:01)
[2022-07-23] MEDS ORDERED: amLODIPine 2.5 MG TABLET PO SCH (09:00)
[2022-07-23] MEDS: GABAPENTIN 300 MG CAPSULE PO SCH (09:25)
[2022-07-23] MEDS: LOSARTAN 50 MG TABLET PO SCH (09:25)
[2022-07-23] MEDS: LORATADINE 10 MG TABLET PO SCH (09:26)
[2022-07-23] MEDS: ASPIRIN EC 81 MG TABLET PO SCH (09:26)
[2022-07-23] MEDS: CLOPIDOGREL 75 MG TABLET PO SCH (09:26)
[2022-07-23] MEDS: FERROUS SULFATE 325 MG TABLET PO SCH (09:26)
[2022-07-23] MEDS: CHOLECALCIFEROL 1,000 UNIT TABLET PO SCH (09:26)
[2022-07-23] MEDS: ESCITALOPRAM 10 MG TABLET PO SCH (09:26)
[2022-07-23] MEDS: CALCIUM (CARBONATE)/VITAMIN D 600 MG-400 UNIT TABLET PO SCH (09:27)
[2022-07-23] MEDS: valACYclovir 500 MG TABLET PO SCH (09:31)
[2022-07-23] MEDS: FLUTICASONE 50 MCG NASAL SPRAY 16 GM BOTTLE BOTH NARES SCH (09:33)
[2022-07-23] MEDS: FLUTICASONE/SALMETEROL 500-50 DISKUS 14 DOSE INH SCH (09:33)
[2022-07-23 13:45] VITALS: BP 104/66
[2022-07-23] MEDS: ASCORBIC ACID 500 MG TABLET PO SCH (14:28)
[2022-07-23] MEDS: VITAMIN E 400 UNIT CAPSULE PO SCH (14:29)
== END 2022-07-23 14:10 | disposition swing bed (61) ==
LOC: N.ED 10:51 → INTOOBSV 13:18 → N.EDINP 13:18 → SUATTDRO 13:18 → N.TELEN 16:21
PROVIDERS: ADMIT Internal Medicine; ATTEND Internal Medicine Geriatric Medicine